=== PATIENT | male | born 1960 | race Caucasian/White ===

== ENCOUNTER 2024-04-27 15:42 | Outpatient (CLI) | payer OTHER, SELFPAY ==
--- NOTE | ~2024-04-27 | CT_ITS ---
EXAMINATION:CT lung screening DATE: 04/27/2024 16:18 INDICATION: Tobacco abuse. Current smoker with 40 pack year history. TECHNIQUE: Computed tomography (CT) of the chest was performed without intravenous contrast. Automate d exposure control and iterative reconstruction technique were employed. The dose-length product (DLP ) was 100.25 mGy-cm. COMPARISON: Chest CT 12/18/2018 FINDINGS: There is mild emphysema. There is mild bronchiectasis in right middle lobe. There is mild a telectasis bilaterally. There is a 3 mm nodule in left lower lobe. No pleural effusion. There is a le ft posterior diaphragmatic hernia containing fat. The heart size is normal. There are coronary artery calcifications. No pericardial effusion. There is mild thoracic spondylosis. IMPRESSION: 1. Lung-RADS category 2: Benign appearance or behavior. Continue annual screening with noncontrast lo w-dose chest CT in 12 months. Reviewed, dictated and finalized at location A. IMPRESSION: 1. Lung-RADS category 2: Benign appearance or behavior. Continue annual screeni ng with noncontrast low-dose chest CT in 12 months.
== END 2024-04-27 15:43 ==
DX: Z12.2 Encounter for screening for malignant neoplasm of respiratory organs (principal); J44.9 Chronic obstructive pulmonary disease, unspecified; Z72.0 Tobacco use
CPT/HCPCS: 71271

== ENCOUNTER 2024-04-27 15:46 | Outpatient (CLI) | payer OTHER, SELFPAY ==
--- NOTE | ~2024-04-27 | XR_ITS ---
EXAMINATION: XR cervical spine min 6V DATE: 04/27/2024 16:15 INDICATION: Cervical spine pain. Radiculopathy. TECHNIQUE: 9 views of cervical spine including flexion and extension views were obtained. COMPARISON: Cervical spine radiographs 07/01/2018 FINDINGS: There is 8 degrees levocurvature of cervical spine. There is kyphosis of cervical spine. Th ere is 2 mm anterolisthesis of C3 on C4 and C4 on C5 and 2 mm retrolisthesis of C5 on C6 and C6 on C7 . There is developmental anterior and posterior fusion at C2-C3. There is mildly decreased disc heigh t at C4-C5 and severely decreased disc height at C5-C6 and C6-C7. The spine is hypomobile with flexio n and extension. There is multilevel uncovertebral joint osteoarthritis, severe on the right at C3-C4 , bilaterally at C5-C6, and on the left at C6-C7. There is multilevel facet joint osteoarthritis, sev ere on the left at C6-C7. On the right, there is moderate neural foraminal stenosis at C2-C3 and C3-C 4 and mild neural foraminal stenosis at C4-C5 and C5-C6. On the left, there is mild neural foraminal stenosis at C3-C4, C4-C5, C5-C6, and C6-C7. There is mild central canal stenosis at C4-C5, C5-C6, and C6-C7. No prevertebral soft tissue swelling. IMPRESSION: 1. Severe cervical spondylosis. Reviewed, dictated and finalized at location A.
== END 2024-04-27 15:47 ==
PROVIDERS: PCP Chiropractor; Visit Provider Chiropractor
DX: M47.22 Other spondylosis with radiculopathy, cervical region (principal)
CPT/HCPCS: 72052

== ENCOUNTER 2025-02-06 13:51 | Emergency (ER) | payer OTHER, SELFPAY ==
--- NOTE | ~2025-02-06 | XR_ITS ---
EXAMINATION: XR chest 2V DATE: 02/06/2025 14:21 INDICATION: Feels dehydrated TECHNIQUE: PA and lateral views of the chest were obtained. COMPARISON: Chest radiograph dated 12/18/[address] dated 04/27/2024 FINDINGS: The lungs remain clear with no focal airspace opacities, pulmonary edema, pleural effusion or pneumot horax. The cardiomediastinal silhouette is normal. Visualized bones and soft tissues are unremarkable . IMPRESSION: 1. No acute cardiopulmonary disease. Reviewed, dictated and finalized at location A.
--- NOTE | 2025-02-06 13:54 | ECG_ITS ---
Test Date: 2025-02-06 14:08:38 Measurements Intervals Elizabeth Rate: 81 P: 56 [place]: 181 QRS: 58 QRSD: 85 T: 71 QT: 359 QTc: 417 Interpretive Statements SINUS RHYTHM BASELINE ARTIFACT- I, II, III, AVR, AVL, AVF, V1-V6 NORMAL ECG No previous ECG available for comparison Electronically Signed On 02-06-2025 15:09:30 CDT by Javier Osorio D.O.
--- OUTSIDE RECORDS SUMMARY | 2025-02-06 14:13 | XMS_ITS | Patient Health Record ---
Author Organization [facility] Address [address] [place] [address] Care Team Providers Care Direct Customer Service Representative Name Role Phone Mindy Ladd MD Primary Care Provider Nolvia LUNDY, PA-C, [place] Unavailable Nicholas RAMIREZ, Rivera Jones Unavailable Reason For Referral No Information Medications Medication SIG (Take, Route, Frequency, Duration) Notes Start Date End Date Status Tamsulosin HCl 0.4 MG 1 capsule Orally O nce a day Active Actemra ACTPen 162 MG/0.9ML as directed Subcutaneous Act tigre Breo Ellipta 200-25 MCG/INH 1 puff Inhalation Once a day Active traZODone HCl 50 MG 1 tab Orally Once a day Active ALPRAZolam 1 MG 0.5 Orally 1- 2 time s a day Active Atorvastatin Calcium 40 MG 1 tablet Orally Once a day Active Social History Tobacco Use: Social History Observation Description Date Details (start date - stop date) Current Smoker NA - NA Tobacco Use/Smoking Question Answer Notes Are you a current smoker How often do you smoke cigarettes? every day How many cigarettes a day do you smoke? 11-20 Problems Problem Type SNOMED Code ICD Code Onset Dates Problem Status W/U Status Risk Notes Problem Peptic ulcer without haemorrhage AND without perforation (37679883) Peptic ulcer, site unspecified, unspecified as acute or chronic, without hemorrhage or perforation (K27.9) Active confirmed Problem Chronic pancreatitis (375960285) Other chronic pancreatitis (K86.1) Active confirmed Problem History of polyp of colon (situation) (269769824) Personal history of colonic polyps (Z86.010) Active confirmed Problem Gastric ulcer without hemorrhage, without perforation AND without obstruction (11471465) Gastric ulcer, unsp as acute or chronic, w/o hemor or perf (K25.9) Active confirmed Plan Of Treatment Pending Test Test Name Order Date Colonoscopy 09/21/2019 Esophagogastroduodenoscopy (EGD) 020 Insurance Providers Payer Name Payer Address Payer Phone Subscriber Number Group Number Insured Name Patient Relationship to Insured Coverage Start Date Coverage End Date [facility] [address] [place], [place] [id number] Joaquín Vizcaino Self - patient is the insured Medical (General) History Medical History History ICD Code Rheumatoid arthritis Hyperlipidemia Spinal stenosis Tobacco use Acute pancreatitis Anxiety Chronic prostatitis GERD with esophagitis Chronic pancreatitis Peptic ulcer disease Surgical History Surgery Date(Month/Year) Discectomy Back fusion Left hip replacement Hernia repair x 3 MCL left knee reconstruction Bone stim removal Colonoscopy 2013 EGD/EUS [place] 09/14/2019 L A grade B reflux esophagitis, bx. Non bleeding gastric ucler with no bleeding, bx. Non bleeding duodenal ulcer with no stigmata of bleeding. Bx. Mild to moderate chronic pancreatitis. No cysts or solid mass lesio ns. Normal CBD, ampulla and gallbladder. Path- esophageal bx with mild to moderate reflux esophagitis, neg for dysplasia. Mild chronic gastritis. Duodenal bx with acute duodenitis with edema, gastric foveolar metaplasia. Detached ulcer debris. F/U EGD 8 weeks.
--- OUTSIDE RECORDS SUMMARY | 2025-02-06 14:13 | XMS_ITS | Encounter Summary ---
Author Organization [facility] Address [address] [place] [address] Phone Care Team Providers Care Customer Sales Specialist Name Role Phone Rafiq Dawson MD Primary Care Provider [phone] Mindy Ladd MD Primary Care Provider Santa Woodward MD Unavailable [phone] Babak Levin MD Primary Care Provider Encounter Details Date Type Department Care Team (Late st Contact Info) Description 12/03/2017 Orders Only [facility] ProviderValdo MD [address] [place] [address] Social History Tobacco Use Types Packs/Day Years Used Date Smoking Tobacco: Heavy Smoker Smokeless Tobacco: Never Comments:Smoking History Pac ks/day: 1 Packs Alcohol Use Standard Drinks/Week Comments No 0 (1 standard drink = 0.6 oz pur e alcohol) Sex and Gender Information Value Date Recorded Sex Assigned at Not on file 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 us Historical Provider LAB BLOOD ORDERABLES Jerrica l Result documented in this encounter Visit Diagnoses Not on filedocumented in this encounter Care Teams Customer Sales Specialist Relationship Specialty Start Date End Date Rafiq Dawson MD [address] [place] [address] PCP - General Family Practice 08/05/17 09/11/19 Mindy Ladd MD [address] [place] [address] PCP - General 09/12/19 09/13/20 Babak Levin MD [address] [place] [address] PCP - General Family Practice 09/14/20 Santa Woodward MD [address] [place] [address] Referring Physician Surgery 10/14/19 documented as of this encounter
--- OUTSIDE RECORDS SUMMARY | 2025-02-06 14:14 | XMS_ITS | Clinical Summary ---
Author Organization [facility] [employer] Address [address] [place] [address] Care Team Providers Care Dental Equipment Installer And Servicer Name Role Phone Babak Levin MD Primary Care Provider Source Comments [facility],non-owned Affiliates and Associated Physician Practices is amultiple site organization consisting of ambulatory clinics and hospital sitesin [place], [place], [place] and [place]. This disclosure is being madepursuant to the Care Everywhere program and may not contain all information available regarding this patient. Last updated 18.[facility] [employer] Allergies Active Allergy Reactions Criticality Noted Date Comments Leflunomide Other Low 04/23/2023 Pt can't remember Methotrexate Other Low 04/23/2023 Reaction: lung toxicity, Sulfasalazine Nausea and/or Vomiting Low 04/23/2023 Reaction: nausea, Medications * Be aware that medications may not be up to date on this document. Alwaysverify current medications with the patient. acyclovir (Zovirax) 400 MG tablet TAKE 1 TABLET BY MOUTH THREE TIMES DAILY NEEDED FOR OUTBREAK 10/20/2022 Active ALPRAZolam (Xanax) 0.25 MG tablet Take 1 (one) tablet by mouth 2 times daily as needed anxiety 12/08/2022 Active Ascorbic Acid 100 MG Take 1 (one) tablet by mouth once daily Active atorvastatin (Lipitor) 40 MG tablet Take 1 (one) tablet by mouth 10/03/2022 Active Cholecalciferol 50 MCG (1999 UT) Take 2,000 Units by mouth once daily Active Enbrel SureClick 50 MG/ML auto-injector pen 03/03/2023 Active hydroxychloroqu ine (Plaquenil) 200 MG tablet TAKE 2 TABLETS(400 MG) BY MOUTH DAILY 01/10/2023 Active omeprazole (PriLOSEC) 20 MG capsule Take 1 (one) capsule by mouth once daily 04/21/2022 Active sildenafil (Viagra) 100 MG tablet TAKE 1 TABLET BY MOUTH ONCE DAILY NEEDED FOR SEXUAL ACTIVITY 09/25/2022 Active tamsulosin (Flomax) 0.4 MG capsule Take 1 (one) capsule by mouth once daily 02/16/2023 Active traZODone (Desyrel) 100 MG tablet TAKE 1/2 TO 1 TABLET BY MOUTH EVERY NIGHT FOR SLEEP 12/14/2022 Active Vitamin E 45 MG (100 UNIT) CAPS Take 1 (one) capsule by mouth once daily Active albuterol HFA (Proventil; Ventolin; Proair) 108 (90 Base) MCG/ACT inhaler Inhale 2 (two) puffs by mouth every 6 hours as needed 8 g 5 03/05/2023 Active Breztri Aerosphere 160-9-4.8 MCG/ACT inhaler INHALE 2 PUFFS BY MOUTH TWICE DAILY 10.7 g 11 08/15/2024 Active Active Problems Problem Noted Date Diagnosed Date COPD (chronic obstructive pulmonary disease) Rheumatoid arthritis involvi ng multiple sites with positive rheumatoid factor 03/05/2023 Family History Medical History Relation Name Comments Other - Cardiac Brother Cancer - Bladder Father Blood Clots Maternal Grandfather Sarcoidosis Mother Cancer - Other Paternal Grandfather Relation Name Status Comments Brother Alive Father Maternal Grandfather Maternal Grandmother Mother Alive Paternal Grandfather Paternal Grandmother Sister Alive Social History Tobacco Use Types Packs/Day Years Used Date Smoking Tobacco: Every Day Cigarettes 1 44.4 Started: 09/07/1980 Smokeless Tobacco: Never Tobacco Cessation:Ready to Q uit: Yes; Counseling Given: Yes Alcohol Use Standard Drinks/Week Comments Not Currently 0 (1 standard drink = 0.6 oz pur e alcohol) rarely Sex and Gender Information Value Date Recorded Sex Assigned at Not on file 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 Gender Identity Not on file Sexual Orientation Not on file Last Filed Vital Signs Vital Sign Reading Time Taken Comments Blood Pressure 122/76 04/21/2024 8:54 AM CDT Pulse 76 04/21/2024 8:54 AM CDT Temperature 36.2 C (97.2 F) 04/23/2023 8:33 AM CDT Respiratory Rate 16 04/23/2023 8:33 AM CDT Oxygen Saturation 98% 04/21/2024 8:54 AM CDT Inhaled Oxygen Concentration - - Weight 80.3 kg (177 lb) 04/21/2024 8:54 AM CDT Height 177.8 cm (5' 10) 04/21/2024 8:54 AM CDT Body Mass Index 25.4 04/21/2024 8:54 AM CDT Plan of Treatment Upcoming Encounters Date Type Department Care Team (Late st Contact Info) Description 04/20/2025 9:20 AM CDT Office Visit [facility] - Pulmonology [address] [place], [place] [id number] Ondina Redman, CLOTH WINDER-AUTO CLAIMS ADJUSTER [address] [place] [address] Health Maintenance Due Date Last Done Comments COLOGUARD (AGES 45-75) - COLON CA SCREENING 1962 COLON MONITORING 1962 COLONOSCOPY - COLON CA SCREENING 1962 CT COLONOGRAPHY - COLON CA SCREENING 1962 Colorectal Cancer Screening 1962 FIT - COLON CA SCREENING 1962 FLEX SIG - COLON CA SCREENING 1962 HIV SCREENING 1977 HEPATITIS C SCREENING 12/20/1980 DTAP/TDAP/TD VACCINES (1 - Tdap) 1981 PNEUMOCOCCAL VACCINE 50+ (1 of 2 - PCV) 1981 LUNG CANCER SCREENING 2012 ZOSTER VACCINE (1 of 2) 2012 Respiratory Syncytial Virus (RSV) Vaccine Pt: or over 60 yrs (1 - Risk 60-74 years 1-dose series) 2022 COVID-19 VACCINE (1 - season) 2024 DEPRESSION SCREENING 09/07/2024 INFLUENZA VACCINE (Season Ended) 2025 05/27/2022, 06/02/2019, 06/26/2018, Additional history exists SCREENING FOR DIABETES 11/26/2025 11/26/2022 HEPATITIS B VACCINE Aged Out No longe r eligible based on patient's age to complete this topic HIB VACCINE Aged Out No longer eligi ble based on patient's age to complete this topic HPV VACCINE Aged Out No longer eligi ble based on patient's age to complete this topic MENINGOCOCCAL (Group B) VACCINE SHARED DECISION-MAKING Aged Out No longer eligible based on patient's age to complete this topic MENINGOCOCCAL GROUPS A/C/Y/W VACCINE Aged Out No longer eligible based on patient's age to complete this topic Insurance [employer] Care Teams Dental Equipment Installer And Servicer Relationship Specialty Start Date End Date Babak Levin MD [facility] [place] [address] [place] [address] PCP - General Family Medicine 04/14/23
--- OUTSIDE RECORDS SUMMARY | 2025-02-06 14:14 | XMS_ITS | Encounter Summary ---
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 [place] [address] Ondina Redman, BACTERIOLOGY TECHNICIAN-PRODUCTION LINE WELDER [address] [place] [phone] documented as of this encounter Procedures Procedure Name Priority Date/Time Associated Diagnosis Comments DERMATOPATHOLOGY Routine 02/05/2022 12:0 0 AM CDT documented in this encounter Results * DERMATOPATHOLOGY (02/05/2022 12:00 AM CDT) Case Report Dermatopathology Report Case: [id number] Authorizing Provider: Jono Hager MD Collected: 02/05/2022 12:00 AM Ordering Location: [facility] Received: 02/06/2022 01:51 PM Pathologist: Jean Hurd MD Specimen: Skin, left medial clavicle 3:43 PM CDT DERMATOPATHOLOGY LABORATORY Final Diagnosis Specimen A. 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 3:43 PM CDT DERMATOPATHOLOGY LABORATORY Gross Description Specimen A: Received is one formalin filled container labeled with the patient's name and designated left medial clavicle. The specimen consists of a shave biopsy measuring [id number]. Jar 0. 3:43 PM CDT DERMATOPATHOLOGY LABORATORY Microscopic Description Specimen A. SKIN, left medial clavicle: Sections show compact orthokeratosis with acanthosis composed of slightly larger keratinocytes with basal layer hyperpigmentation. In the dermis, there are dilated vascular spaces surrounded by widely spaced endothelial cells. 3:43 PM CDT DERMATOPATHOLOGY LABORATORY Disclaimer An external and internal positive and negative controls are appropriate for the histochemical, immunohistochemical and immunofluorescence stain(s) in this case (if any), except where stated explicitly. The performance characteristics of the stain(s) cited in this report were developed and its performance characteristic determined by the Dermatopathology Laboratory at [facility], directed by Dr. Yusef Hurd. These tests need not be, and therefore are not, approved by the [place] Food and Drug Administration. The tests are used for clinical purposes. Billing Codes Specimen Charges Stain Charges 72165 1 2 3:43 PM CDT DERMATOPATHOLOGY LABORATORY Embedded Images 3:43 PM CDT DERMATOPATHOLOGY LABORATORY Pathology/Cytolog y TISSUE SPECIMEN FROM SKIN / Unknown 02/05/2022 02/06/2022 1:51 PM CDT Jono Hager MD LAB - PATHOLOGY/CYTOLOGY ORD ERABLES Final Result DERMATOPATHOLOGY LABORATORY [facility] - Department of Dermatology [facility] [address] [place] [address], [address] [phone] documented in this encounter Visit Diagnoses Not on filedocumented in this encounter Care Teams Enterprise Sales Person Relationship Specialty Start Date End Date Babak Levin MD [address] [facility] [address] [address] PCP - General Family Medicine 04/14/23 documented as of this encounter
--- OUTSIDE RECORDS SUMMARY | 2025-02-06 14:14 | XMS_ITS | Referral Summary ---
Author Organization [facility] Address [address] [place] [address] Care Team Providers Care Cylinder Block Hole Reliner Name Role Phone Santa Woodward MD Unavailable [phone] Babak Levin MD Primary Care Provider Encounters Date Type Department Care Team Description 02/01/2025 8:35 AM CDT Lab [facility] Outpatient Lab [address] [place] [address] Encounter for long-term (current) use of high-risk medication; Rheumatoid arthritis involving multiple sites with positive rheumatoid factor (HCC) 02/01/2025 8:00 AM CDT Office Visit [facility] at [facility] [address] [place] [address] Jessica Tyson MD Rheumatoid arthritis involving multiple sites with positive rheumatoid factor (HCC) (Primary Dx); Encounter for long-term (current) use of high-risk medication; Bilateral carpal tunnel syndrome from Last 3 Months Allergies Active Allergy Reactions Criticality Noted Date Comments Leflunomide Other (See comments) Low 04/23/2023 Pt can't remember Methotrexate Other (See comments) Low 04/23/2023 Reaction: lung toxicity, Sulfasalazine Nausea only,Nausea A nd Vomiting Low 04/23/2023 Reaction: nausea, Medications sildenafil (VIAGRA) 100 mg tablet take 0.5 - 1 Tablet by oral route every day as needed approximately 1 hour before sexual activity 3 0 03/14/20 13 Active tamsulosin (FLOMAX) 0.4 mg capsule,exten ded release 24hr take 1 capsule by oral route every day after the evening meal 0 0 09/16/19 14 Active atorvastatin (LIPITOR) 40 mg tablet Take 1 tablet (40 mg total) by mouth daily Active ascorbic acid (VITAMIN C) 100 mg tablet Take 1 tablet (100 mg total) by mouth daily Active vitamin E (AQUASOL E) 100 unit capsule Take 1 capsule (100 Units total) by mouth daily Active zinc 50 mg tablet Take by mouth daily Active acyclovir (ZOVIRAX) 400 mg tablet TAKE 1 TABLET BY MOUTH THREE TIMES DAILY NEEDED FOR OUTBREAK 02/14/20 21 Active ALPRAZolam (XANAX) 0.25 mg tablet Take 1 tablet (0.25 mg total) by mouth nightly as needed 04/25/20 21 Active cholecalcifer ol (VITAMIN D-3) 2000 unit capsule Take 1 capsule (2,000 Units total) by mouth daily Active Breztri Aerosphere 160-9-4.8 mcg/actuation HFA aerosol inhaler Inhale 2 puffs 2 (two) times a day 04/23/20 23 Active omeprazole (PriLOSEC) 20 mg capsule TAKE 1 CAPSULE(20 MG) BY MOUTH DAILY 30 capsule 11 08/04/20 23 Active EnbreL SureClick 50 mg/mL (1 mL) pen injector INJECT 1 PEN UNDER THE SKIN EVERY 7 DAYS 4 mL 3 06/23/20 24 Active hydroxychloro quine (PLAQUENIL) 200 mg tablet TAKE 2 TABLETS(400 MG) BY MOUTH DAILY 180 tablet 1 10/04/19 25 Active methylPREDNIS olone (Medrol, Diego,) 4 mg Dosepack follow package directions 1 packet 10/14/19 25 Active Additional Information Patient not taking.Reported on 02/01/2025 traZODone (DESYREL) 100 mg tablet TAKE 1/2 TO 1 TABLET BY MOUTH EVERY NIGHT FOR SLEEP 30 tablet 5 12/30/19 25 Active EnbreL SureClick 50 mg/mL (1 mL) pen injector INJECT 1 PEN UNDER THE SKIN EVERY 7 DAYS 4 mL 3 01/18/20 25 Active Additional Information Patient not taking.Reported on 02/01/2025 methylPREDNIS olone (Medrol, Diego,) 4 mg Dosepack follow package directions 1 packet 02/02/20 Active BREO ELLIPTA 200-25 mcg/dose diskus inhaler USE 1 PUFF DAILY 0 09/14/19 19 025 Discontinued cyclobenzapri ne (FLEXERIL) 10 mg tablet Take 1 tablet (10 mg total) by mouth 3 (three) times a day as needed for muscle spasms 30 tablet 1 03/28/20 22 025 Discontinued etanercept (ENBREL) 50 mg/mL (1 mL) pen injector Inject 1 mL (50 mg total) under the skin every 7 days 4 mL 3 09/19/19 025 Discontinued Active Problems Problem Noted Date Diagnosed Date Gastric ulcer, unsp as acute or chronic, w/o hem or or perf 02/01/2025 Long-term use of hydroxychloroquine 05/13/2023 Assessment & Plan (05/13/2023 8:08 AM CDT): Screening Ophthalmological Evaluation Request Medication: Hydroxychloroquine (Plaquenil) Patient: Please obtain the following eye exam with your eye doctor before starting hydroxychloroquine (Plaquenil). Then, continue to obtain yearly eye exams (or as directed by your eye doctor) while taking Plaquenil. Provider: Please perform the following exams on an annual basis: Visual Acuity Visual Field testing Slit Lamp evaluation Color Vision Assessment OCT COPD (chronic obstructive pulmonary disease) Assessment & Plan (01/24/2020 9:58 AM CDT): See comments above Spasm of muscle of lower back 03/28/2022 Assessment & Plan (03/28/2022 11:42 AM CDT): Acute onset of spasms without any new radicular features. Encouraged isometric stretching, heat 20 minutes 3x and day, short course of flexeril. Low threshold to proceed on to PT if not quickly improving. Trigger middle finger of left hand 03/28/2022 Assessment & Plan (03/28/2022 11:43 AM CDT): Worsening with more frequent triggering and more difficulty manually releasing. I have encouraged evaluation by ortho/hand but he continues to decline at present. Reassess at next visit. COVID-19 09/13/2021 Abscess of anal and rectal regions 02/16/2020 Overview (02/16/2020): Added automatically from request for surgery [id number] Advice given about 2019 novel coronavirus by tel sreedhar 01/24/2020 Assessment & Plan (01/24/2020 9:58 AM CDT): The full impact of autoimmune diseases and immunomodulatory medications on susceptibility and complications of coronavirus disease is not yet studied. Because we have keno writer / runner with this new virus we do not currently have absolute answers. Currently we are not recommending that patients stop their medications during this period of uncertainty. We do not want to risk letting your disease flare. The usual CDC precautions for minimizing coronavirus risk are appropriate. Frequently wash your hands with soap and water for at least 20 seconds. When soap and running water are unavailable, use an alcohol-based hand rub with at least 60% alcohol. Always wash hands that are visibly soiled. Avoid touching your eyes, nose, or mouth with unwashed hands. Avoid close contact with people who are sick and maintain social distancing. The CDC has recommended that ALL persons wear a fabric mask when out in public. Obviously this is a fast-moving issue and the CDC is providing regular updates as the course and extent of the epidemic is monitored. You may keep up to date at the CDC website: www.coronavirus.gov You may also find more information relevant to your questions at the [employer] webpage: arthritis.org. Click on the Coronavirus banner. It is important that you continue to adhere to the [id number] orders for the time being, especially in view of your potentially immunocompromised status. Feel free to reach out to us if you have additional questions after you review this information. You may review the current [employer] Covid-19 clinical guidance for Patients with Rheumatic Diseases if you copy and paste the link below into your web browser: [email or web address] Of course, Actemra should be placed on hold in the event you were to become ill. Peptic ulcer without hemorrhage or perforation 0 10/17/2019 Assessment & Plan (10/17/2019 10:02 AM METAL WORKER): Reviewed EGD with duodenal and gastric ulcer. Completed 30 day Prilosec as ordered by Dr. Hernandez. Follow up endoscopy 11/23/2019. May use Pepcid AC in the interim if needed for heartburn/dyspepsia. History of pneumonia 10/17/2019 Overview (10/17/2019): pneumonia Perianal abscess 10/06/2019 Overview (10/06/2019): Added automatically from request for surgery [id number] Assessment & Plan (01/24/2020 10:16 AM CDT): Management per Dr. Woodward. If continues to recur may need to discontinue Actemra; hopefully it will not come to that. Assessment & Plan (10/17/2019 10:05 AM METAL WORKER): Incision and drainage 10/14/2019 (Dr. Woodward). Acute anal fissure 08/28/2019 Presence of left artificial hip joint 05/16/2019 Trochanteric bursitis of left hip 05/16/2019 Lumbosacral spondylosis without myelopathy 03/29 Assessment & Plan (07/07/2019 9:13 AM CDT): DDD clinically stable with conservative management. Spondylosis of cervical yessica on without myelopathy or radiculopathy 03/29/2019 Chronic pancreatitis 03/29/2019 Overview (04/25/2019): US Abdomen Complete Status: Final result Study Result EXAM: ABDOMINAL SONOGRAM HISTORY: Acute pancreatitis FINDINGS: Liver: No focal hepatic abnormality. Gallbladder: Gallbladder appears normal. Bile ducts: Normal diameter. Pancreas: The limited portions of pancreas which can be visualized appear unremarkable. Aorta: No sonographic evidence for abdominal aortic aneurysm Inferior vena cava: Patent in the upper abdomen Spleen: Normal size and echogenicity Right kidney: 11.7 cm in length. No hydronephrosis Left kidney: 11.8 cm in length. No hydronephrosis IMPRESSION: No sonographically visualized abnormalities identified. Electronically signed by: Jose J Low M.D. Result History US Abdomen Complete (Order #[id number]) on 04/25/2019 - Order Result History Report Assessment & Plan (01/24/2020 9:55 AM CDT): Currently symptom free. Update lab as per orders. Assessment & Plan (10/17/2019 9:49 AM METAL WORKER): EGD and EUS reviewed. Impression: EGD impression: - LA Grade B reflux esophagitis. Biopsied. - Normal gastric body. Biopsied. - Non-bleeding gastric ulcer with no stigmata of bleeding. Biopsied. - One non-bleeding duodenal ulcer with no stigmata of bleeding. Biopsied. EUS impression: - Endosonographic imaging of the pancreas showed sonographic changes consistent with mild-moderate chronic pancreatitis. There was no evidence of pancreatic cysts or solid mass lesions. - There was no sign of significant pathology in the common bile duct, gallbladder and the ampulla. Recommendation: - The patient will be observed post-procedure, until all discharge criteria are met. - Await path results. - Low fat diet indefinitely. - Smoking cessation. - Use Prilosec (omeprazole) 40 mg PO BID for 1 month [facility] - Return to Dr Hunter's office in 2-4 weeks. - Consider repeat EGD based on the duodenal ulcer biopsies to check for healing. The duodenal ulcer showed raised edges therefore suggest repeat EGD in 2 months. - The findings and recommendations were discussed with the patient and their family. Attending Participation: I personally performed the entire procedure. Electronically signed by Baldemar Bright MD Baldemar Bright M.D. 09/14/2019 9:18:35 AM This document was signed electronically. Number of Addenda: 0 Note Initiated On: 09/14/2019 7:31 AM Last Resulted: 09/14/19 07:31 Follow up exam scheduled 11/23/2019. Assessment & Plan (07/07/2019 9:15 AM CDT): Lab Results Component Value Date LIPASE 135 (H) 03/29/2019 Update lab as per orders. Assessment & Plan (03/29/2019 9:52 AM CDT): Evaluated in [facility] ER 2018 when patient presented with chest pain. He does not believe any imaging was performed. Reportedly persistently elevated lipase on repeat testing per Dr. Dawson. Referral to GI suggested, but never scheduled. Update lab as per orders. Consider ultrasound and/or CT imaging if not already done. Instability of knee joint, left 03/29/2019 Assessment & Plan (07/07/2019 9:16 AM CDT): Continue conservative management as per orthopedics (Dr. Mikhail Mays). Assessment & Plan (03/29/2019 9:50 AM CDT): Previous surgery noted. X-ray 12/2018: XR Knee Left AP Lat Alcaraz Chalfant Status: Final result Study Result EXAM: XR KNEE AP LAT ALCARAZ SUNRISE L INDICATION: Rheumatoid arthritis COMPARISON: No prior studies available. FINDINGS: Four views of the right knee. Surgical hardware at the medial femoral condyle and medial aspect of the proximal tibia. No carolyne-hardware lucency. No significant degenerative changes. No osseous erosions. No evidence of fracture. No evidence of dislocation. There is a no significant joint effusion. IMPRESSION: No acute findings or significant degenerative changes. Postsurgical changes of the distal femur and proximal tibia. Electronically signed by: JAYSON LOOMIS MD Result History XR Knee Left AP Lat Alcaraz Chalfant (Order #[id number]) on 12/07/2018 - Order Result History Report He has significant pain with weight bearing and flexion with ? Pos anterior drawer and Kristine maneuver as well as medial instability and positive Otilia sign on exam. Referral to orthopedic surgery provided. Viral upper respiratory tract infection 03/29/20 19 Assessment & Plan (03/29/2019 9:52 AM CDT): Most respiratory infections are viral. Per CDC recommendations, and to reduce increasing incidence of bacterial antibiotic resistance, antibiotics are not advised unless fever, deep chest cough with purulent sputum or symptoms lasting more than 10 day. For the time being would use Mucinex DM for cough, non-sedating antihistamine (such as Zyrtec) and nasal steroid spray (flonase) all available over the counter. If not improvement over the next 7-10 day let us know. Moderate cigarette smoker (10-19 per day) 2016 Assessment & Plan (01/24/2020 9:55 AM CDT): Cigarette smoking and COPD pose an additional vulnerability to Covid-19 infection. A concentrated focus on tobacco cessation would be to your advantage. Assessment & Plan (10/17/2019 10:00 AM METAL WORKER): Smoke cessation efforts reviewed. Reinforce importance tobacco cessation! Please check out the CDC tobacco cessation website: https://www.cdc.gov/tobacco/ We can offer Chantix to help reduce craving and withdrawal if you wish to try. You may read read about Chantix online. www.chantix.[employer] Assessment & Plan (08/05/2017 9:22 AM METAL WORKER): Pulmonary issues managed by Dr. Jorge santos. Patient resolved to quit smoking after 09/07/2017! Hyperlipidemia 06/29/2017 Assessment & Plan (07/07/2019 9:16 AM CDT): Lab Results Component Value Date CHOL 167 12/07/2018 POCCHOL 180 07/01/2018 POCCHOL 153 06/30/2017 Lab Results Component Value Date HDL 41 12/07/2018 POCHDL 41 07/01/2018 POCHDL 39 06/30/2017 Lab Results Component Value Date LDLCALC 91 12/07/2018 POCLDL 111 07/01/2018 POCLDL 73 06/30/2017 Lab Results Component Value Date TRIG 173 (H) 12/07/2018 POCTRIG 137 07/01/2018 POCTRIG 203 06/30/2017 Update lab as per orders. Assessment & Plan (07/01/2018 8:57 AM CDT): Lipids are well controlled. Continue high-intensity statin therapy. Assessment & Plan (06/30/2017 10:19 AM CDT): Lipids are well controlled. Continue high-intensity statin therapy. I made no change in his excellent medical regimen today. I asked him to follow up with me annually, or sooner if needed. I again strongly advised him to stop smoking completely, and to diet and exercise regularly. Encounter for long-term (cur rent) use of high-risk medication 04/15/2017 Assessment & Plan (05/13/2023 8:08 AM CDT): Long-term use of high-risk medication requiring regular monitoring. Labs ordered, no s/s of med tox or infection. Encouraged to work with PCP to make sure all recommended cancer screens and vaccinations are complete. Avoid live-vaccines unless reviewed with senior ui developer first. Assessment & Plan (03/28/2022 8:21 AM CDT): Long-term use of high-risk medication requiring regular monitoring. Labs ordered, no s/s of med tox or infection. Encouraged to work with PCP to make sure all recommended cancer screens and vaccinations are complete. Avoid live-vaccines unless reviewed with senior ui developer first. Screening Ophthalmological Evaluation Request Medication: Hydroxychloroquine (Plaquenil) Patient: Please obtain the following eye exam with your eye doctor before starting hydroxychloroquine (Plaquenil). Then, continue to obtain yearly eye exams (or as directed by your eye doctor) while taking Plaquenil. Provider: Please perform the following exams on an annual basis: Visual Acuity Visual Field testing Slit Lamp evaluation Color Vision Assessment OCT Assessment & Plan (01/24/2020 9:59 AM CDT): Lab Results Component Value Date WBC 15.4 (H) 10/17/2019 HGB 15.9 10/17/2019 HCT 46.8 10/17/2019 MCV 97.3 (H) 10/17/2019 LABPLAT 203 10/17/2019 Chemistry Lab Results Component Value Date SODIUM 141 10/17/2019 POTASSIUM 4.3 10/17/2019 CHLORIDE 104 10/17/2019 CO2 25 10/17/2019 ANIONGAP 12 10/17/2019 BUNSER 13 10/17/2019 CREATININE 0.92 10/17/2019 GLUCOSE 97 10/17/2019 CALCIUM 9.8 10/17/2019 BILITOT 0.3 10/17/2019 PROTEIN 7.3 05/01/2016 ALBUMIN 4.3 10/17/2019 GFRNAA 93 10/17/2019 ALKPHOS 80 10/17/2019 AST 34 10/17/2019 ALT 39 10/17/2019 MAGNESIUM 2.09 07/07/2019 Lab Results Component Value Date SEDRATE 8 10/17/2019 Lab Results Component Value Date CRP 10.9 (H) 10/17/2019 Patient on medications requiring periodic lab monitoring for drug safety. Update lab as per orders written. Assessment & Plan (10/17/2019 9:48 AM METAL WORKER): Patient on medications requiring periodic lab monitoring for drug safety. Update lab as per orders written. Assessment & Plan (07/07/2019 9:15 AM CDT): Patient on immunosuppressive medications requiring periodic lab monitoring for drug safety. Update lab as per orders written. Assessment & Plan (03/29/2019 9:48 AM CDT): Patient on immunosuppressive medications requiring periodic lab monitoring for drug safety. Update lab as per orders written. Assessment & Plan (12/07/2018 9:44 PM CDT): Patient on immunosuppressive medications requiring periodic lab monitoring for drug safety. Update lab as per orders written. Assessment & Plan (09/30/2018 9:41 AM METAL WORKER): Patient on immunosuppressive medications requiring periodic lab monitoring for drug safety. Update lab as per orders written. Assessment & Plan (04/08/2018 9:15 AM CDT): Patient on immunosuppressive medications requiring periodic lab monitoring for drug safety. Update lab as per orders written. Assessment & Plan (12/03/2017 9:16 AM CDT): Patient on immunosuppressive medications requiring periodic lab monitoring for drug safety. Update lab as per orders written. Assessment & Plan (08/05/2017 9:23 AM METAL WORKER): Patient on immunosuppressive medications requiring periodic lab monitoring for drug safety. Update lab as per orders written. Assessment & Plan (04/15/2017 9:25 AM CDT): Patient on immunosuppressive medications requiring periodic lab monitoring for drug safety. Update lab as per orders written. Overweight with body mass index (BMI) 25.0-29.9 04/15/2017 Assessment & Plan (10/17/2019 10:01 AM METAL WORKER): An optimal BMI (body mass index) is between 20 and 25. Encourage weight loss. Each pound of weight lost unloads 3-4 pounds per square inch pressure from weight bearing joints. Diet and exercise are the keys to weight management. Assessment & Plan (07/07/2019 9:17 AM CDT): BMI satisfactory. A healthy diet and routine exercise regimen are delacruz to weight management. Assessment & Plan (03/29/2019 9:48 AM CDT): An optimal BMI (body mass index) is between 20 and 25. Encourage weight loss. Each pound of weight lost unloads 3-4 pounds per square inch pressure from weight bearing joints. Diet and exercise are the keys to weight management. Assessment & Plan (12/07/2018 9:44 PM CDT): BMI satisfactory. A healthy diet and routine exercise regimen are dleacruz to weight management. Assessment & Plan (09/30/2018 9:41 AM METAL WORKER): An optimal BMI (body mass index) is between 20 and 25. Encourage weight loss. Each pound of weight lost unloads 3-4 pounds per square inch pressure from weight bearing joints. Diet and exercise are the keys to weight management. Assessment & Plan (04/08/2018 9:15 AM CDT): An optimal BMI (body mass index) is between 20 and 25. Encourage weight loss. Each pound of weight lost unloads 3-4 pounds per square inch pressure from weight bearing joints. Diet and exercise are the keys to weight management. Assessment & Plan (12/03/2017 9:17 AM CDT): An optimal BMI (body mass index) is between 20 and 25. Encourage weight loss. Each pound of weight lost unloads 3-4 pounds per square inch pressure from weight bearing joints. Diet and exercise are the keys to weight management. Assessment & Plan (08/05/2017 9:22 AM METAL WORKER): Stable, near normal. An optimal BMI is < 25. Spinal stenosis of lumbar region 02/24/2014 Chest pain 07/19/2012 Overview (12/12/2016): CHEST PAIN NEC Assessment & Plan (07/01/2018 8:57 AM CDT): Stable, without definite angina, but he has had recurrent chest discomfort at rest, with some features concerning for possible angina in the setting of ongoing cigarette smoking and hyperlipidemia. I recommended an echocardiogram to re-evaluate left ventricular and valvular function, and a stress echo to rule out any significant ischemia. Further recommendations will await these results. I made no change in his excellent medical regimen today. Tentatively, I asked him to follow up with me on an as-needed basis only, pending the results of the above studies. He will follow up with his primary physician regularly. Rheumatoid arthritis 08/22/2009 Overview (04/08/2018): Images from the original note were not included. Assessment & Plan (05/13/2023 8:10 AM CDT): Stable Rheumatoid Arthritis, seropositive with +RF and anti CCP-history of many meds used in the past including SSZ, MTX, Arava, Humira, Cimzia, Xeljanz, Actemra, Plaquenil (Enbrel previously denied but now back on.) -Currently stable on Enbrel and plaquenil 200 mg bid -labs today to monitor for drug toxicity. -continue yearly retinal exam on plaquenil, he is up to date -encouraged him to continue regular stretching, exercise Follow up in 6 months and prn. Assessment & Plan (03/28/2022 8:22 AM CDT): Stable Rheumatoid Arthritis, seropositive with +RF and anti CCP-history of many meds used in the past including SSZ, MTX, Arava, Humira, Cimzia, Xeljanz, Actemra, Plaquenil (Enbrel denied) -Currently stable on Orencia and plaquenil 200 mg bid -labs today to monitor for drug toxicity. -continue yearly retinal exam on plaquenil, he is up to date -encouraged him to continue regular stretching, exercise Assessment & Plan (01/24/2020 9:57 AM CDT): RA clinically stable. He has had to suspend Actemra again for two weeks as he experience a slight resurgence of his rectal abscess (see below). During his periods of Actemra interruption his symptoms have flared slightly, but as he is working from home it has been manageable. He has resumed Actemra this week. Assessment & Plan (10/17/2019 9:46 AM METAL WORKER): Clinically stable. He has missed the last 3 weeks Actemra due to perirectal abscess and recent surgical incision an drainage (10/14/2019). Will hold Actemra x 2 weeks (may resume 10/30/2019). Update lab as per orders. Assessment & Plan (07/07/2019 9:15 AM CDT): Clinically improving with initiation Actemra. He is optimistic re: response. No med side effects reported; denies injection site reactions. Will continue same. Update lab as per orders. Prednisone 5-10 mg daily as needed for occasional flares ordered. Assessment & Plan (03/29/2019 9:48 AM CDT): Continued synovitis and pain on current med regimen (Xeljanz x 3 months). No med side effects reported. He has increased pain shoulders as well as flare L knee. Patient was seen in [facility] for chest pain with ?pancreatitis (elevated lipase) reportedly still high on repeat testing per Dr. Dawson (see below). Recommend discontinue Xeljanz (ineffective). He has previously failed Humira as well as Cimzia and had side effects from methotrexate, sulfasalazine and leflunomide. Will attempt to authorize Orencia (abatacept). Discussed with patient. ABATACEPT (ORENCIA) PATIENT INFORMATION: Abatacept (Orencia) is often prescribed after failure of a disease-modifying anti-rheumatic agent (DMARD), like methotrexate but it can be used as first-line therapy. Abatacept is used to reduce inflammatory symptoms such as swelling, pain, and stiffness. In the intermediate, it is expected to stop joint deformities, therefore helping to maintain range of motion. It is often used in patients with moderate to severe rheumatoid arthritis who have not responded to one or more DMARDs, such as methotrexate, or other biologic drugs. DMARDs are generally tried first. Abatacept may be used alone or in combination with DMARDs, which makes it more potent, but not with other biologic drugs (such as TNF inhibitors). Its use in other diseases is still being studied. Unlike some other biologic drugs, abatacept does not block inflammatory proteins like TNF-alpha antagonists. Abatacept attaches to the surface of inflammatory cells and blocks communication between these cells. By blocking this communication, abatacept lessens inflammation. HOW TO TAKE IT: Abatacept is available either in infusible or injectable form. The infusion is given intravenously (through a needle placed in a vein) at 0, 2, and 4 weeks, then monthly thereafter in your doctor's office or at an infusion center. The dosage is adjusted according to the patient s weight. It takes 30 minutes to receive the whole infusion. The injectable form of abatacept is injected under the skin at home once a week. It can be administered by the patient or another member of the home. Studies have shown this formulation to be as safe and effective as the infusion. Although some patients feel relief within the first month of treatment, usually three months of continuous treatment are needed to get the full effect of the medication. SIDE EFFECTS: The most common side effects reported were those associated with headaches, common colds, sore throat, and nausea. Rarely, patients may develop infusion reactions while receiving abatacept including a severe allergic reaction, hives, shortness of breath, and low blood pressure. Nurses will monitor you and your vital signs throughout the infusion. Pre-medications such as Tylenol or Benadryl can be used preventively and can be discussed with your doctor. The most important side effect is the risk of developing a serious infection, including pneumonia, tuberculosis, and others. Patients are tested for possible tuberculosis with a skin test or blood test before starting this drug. Abatacept should not be combined with another biologic drug, because the combination can increase the risk of jeff a serious infection. It is not yet clear if the risk of cancer is higher in patients on abatacept compared to patients with other drugs. Nevertheless, larger reports should demonstrate if there is any trend of possible cancer risk. Monitoring by your senior ui developer is necessary while taking this medication and lab monitoring may be needed periodically as well. Using two biologic drugs (such as TNF-alpha blockers and abatacept) at the same time carries high risk of developing serious infections. Patients who have previously received another biologic drug, such as a TNF-alpha td, can receive abatacept after the first drug has been stopped. Patients with diabetes mellitus should be aware that sugars in the infusion form of abatacept may cause false high blood sugar levels. You should discuss with your physician how to properly monitor this. TELL YOUR DOCTOR: Patients who have been exposed to people with suspected serious infections, such as tuberculosis, should notify their doctors before taking Orencia. All patients should be tested for tuberculosis before starting abatacept. Other laboratory tests may be required as well. Patients displaying symptoms of an infection - including fever, cough, or others - should notify their doctors. Patients should not receive live vaccines while receiving abatacept and should consult their senior ui developer before receiving a live vaccine afterwards. Risks in women are still being studied. Because biologics tend to be expensive, its availability may depend on your insurance formulary. Updated November 2016 by Fatoumata Severino MD and reviewed by the [employer] on Communications and Marketing.This information is provided for general education only. Individuals should consult a qualified health care provider for professional medical advice, diagnosis and treatment of a medical or health condition. 2017 [employer] - See more at: [email or web address] Assessment & Plan (12/07/2018 9:44 PM CDT): He has completed first month Xeljanz. He has not yet noticed improvement and in fact, is feeling worse as his Cimzia effect is dissipated. He describes generalized stiffness and malaise. Having increased difficulty with ADLs and especially painful L knee (previous arthroscopic surgery). I have explained to patient that it may take up to 12 weeks to begin to see Xeljanz effect and 24 weeks to assess full benefit. He is offered steroids (low dose) for immediate relief but wishes to avoid same. Will update lab as per orders and x-ray L knee. Consider return for steroid injection pend review same. 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 Xeljanz authorization never pursued following 04/2018 OV though patient is anxious to proceed. He has a single Cimzia dose remaining (due this weekend). He will not reorder. Update lab as per orders. Follow up 1 month after Xeljanz initiated. He understands that IF insurance denies Xeljanz we will pursue Orencia as second option. TOFACITINIB (XELJANZ) PATIENT INFORMATION: Tofacitinib citrate (Xeljanz ) is a coated tablet you swallow. The standard dosage is one 5 mg tablet taken twice a day. Tofacitinib s most common side effects are upper respiratory tract infections, diarrhea, headache, nasal congestion, sore throat and runny nose. Tofacitinib may lower your body s ability to fight infections, including TB. Watch for any signs of a possible infection, and don t take tofacitinib while you have an active infection until it is well controlled. Tofacitinib should not be used by people who have severe liver problems. It s unknown if tofacitinib is safe and effective in people with hepatitis B or C. Tofacitinib should be used with caution in people who have been told they are at a high risk of developing gastrointestinal perforation (a hole in the stomach, large bowel or small intestine). Before taking tofacitinib, tell your doctor if you have had TB, or if you have lived in or traveled to an area of the country or world where TB outbreaks are common. Tofacitinib may increase your risk of developing certain cancers, including lymphoma and some skin cancers, or activate hepatitis B or C if you are carrying those viruses. Tofacitinib citrate (Xeljanz ) is an oral, small molecule drug used to treat adults with [id number], active rheumatoid arthritis who have not responded well to being treated with methotrexate. Methotrexate is a disease-modifying antirheumatic drug (DMARD) used to treat rheumatoid arthritis (RA). Tofacitinib acts to block the body s production of enzymes called Janus kinases (JAKs). JAKs play a role in joint inflammation in RA, which can cause pain, swelling and stiffness. If left untreated, RA inflammation could lead to joint erosions, and organ and tissue damage. It may be used alone or in combination with methotrexate or other DMARDs. Tofacitinib is currently being studied for use in treating other autoimmune diseases, including psoriasis, psoriatic arthritis, ulcerative colitis, Crohn s disease and ankylosing spondylitis. HOW TO TAKE IT: Tofacitinib is a coated tablet that you swallow. The recommended dose is one 5 mg taken twice a day. People with moderate to severe renal impairment, or moderate hepatic impairment, should take only one 5 mg tablet per day. You may take tofacitinib tablets with or without food. Tofacitinib may be used alone to treat RA, or it may be used in combination with methotrexate or other DMARDs. However, it s not recommended to use tofacitinib with biologics, DMARDs, or with potent immunosuppressant drugs like azathioprine or cyclosporine. RISKS AND SIDE EFFECTS: Tofacitinib may reduce your body s ability to fight infection. Do not use tofacitinib if you have an active infection, even a localized infection, and don t start using tofacitinib again until your infection is well controlled. You should not take live vaccines while taking tofacitinib, but it s safe to take non-live vaccines. Some people who have taken tofacitinib have developed serious infections, such as tuberculosis (TB), invasive fungal infections, and bacterial and viral infections. You should watch carefully for the signs of infection during and after taking tofacitinib, including fever, chills, muscle aches, cough, body sores, diarrhea and pain when urinating. While taking tofacitinib, your doctor will test you regularly for changes to your blood or liver enzymes. Your doctor should test you for TB before you start taking tofacitinib, and watch you for signs of TB development while you are taking the drug. Before starting tofacitinib, you should tell your doctor if you have any medical condition that may make you more susceptible to infection, such as diabetes, HIV or a weak immune system. You should also tell your doctor if you have traveled or lived in any areas where there it is more likely to get certain fungal infections, or in countries where TB is widespread. Tofacitinib may increase your risk of certain cancers, such as lymphoma or some skin cancers, by suppressing your body s immune system responses. Some people taking tofacitinib, particularly those also taking nonsteroidal anti-inflammatory drugs (NSAIDs) or corticosteroids, may experience perforations or tears in their stomach or intestines, so tell your doctor if you have any unexplained stomach pain or changes in your bowel habits. Before starting tofacitinib, tell your doctor if you have had kidney or liver problems, or gastrointestinal problems like diverticulitis or ulcers. Some people taking drugs to prevent the rejection of a kidney transplant as well as taking tofacitinib have developed an Manuel-Cody virus-related infection, so tell your doctor if you have had a transplant and are taking these drugs. Tofacitinib also may lead to the activation of hepatitis B or C in people who carry those viruses. The most common side effects of tofacitinib include upper respiratory tract infections, diarrhea, headache, nasal congestion, sore throat and runny nose. It s unknown how tofacitinib may affect unborn children or be passed through breast milk, so or nursing women should weigh the possible risks and benefits of tofacitinib with their doctor. Tofacitinib s effectiveness may be reduced if taken with some antifungal and other medications, so tell your doctor about any medications you use before starting tofacitinib, or if you are preparing to get any vaccines. Updated March 2014. Written by Monica Padilla and reviewed by the [employer] on Communications and Marketing. This information is provided for general education only. Individuals should consult a qualified health care provider for professional medical advice, diagnosis and treatment of a medical or health condition. 2014 [employer] See more at: [email or web address] Assessment & Plan (04/08/2018 9:29 AM CDT): Seropositive RA with symptom flare on current certolizumab regimen after previous better control. Increased pain and prolonged morning stiffness accompanied by fatigue. Rapid3 16.0. Discussed trial alternate biologic response modifiers after current Cimzia supply depleted. Consider tofacitinib (Xeljanz) if insurance allows; alternatively abatacept (Orencia). He has previously failed adalimumab (Humira) and is intolerant methotrexate (pneumonitis). Will update lab and imaging hands (rule out progressive erosions). TOFACITINIB (XELJANZ) PATIENT INFORMATION: Tofacitinib citrate (Xeljanz ) is a coated tablet you swallow. The standard dosage is one 5 mg tablet taken twice a day. Tofacitinib s most common side effects are upper respiratory tract infections, diarrhea, headache, nasal congestion, sore throat and runny nose. Tofacitinib may lower your body s ability to fight infections, including TB. Watch for any signs of a possible infection, and don t take tofacitinib while you have an active infection until it is well controlled. Tofacitinib should not be used by people who have severe liver problems. It s unknown if tofacitinib is safe and effective in people with hepatitis B or C. Tofacitinib should be used with caution in people who have been told they are at a high risk of developing gastrointestinal perforation (a hole in the stomach, large bowel or small intestine). Before taking tofacitinib, tell your doctor if you have had TB, or if you have lived in or traveled to an area of the country or world where TB outbreaks are common. Tofacitinib may increase your risk of developing certain cancers, including lymphoma and some skin cancers, or activate hepatitis B or C if you are carrying those viruses. Tofacitinib citrate (Xeljanz ) is an oral, small molecule drug used to treat adults with [id number], active rheumatoid arthritis who have not responded well to being treated with methotrexate. Methotrexate is a disease-modifying antirheumatic drug (DMARD) used to treat rheumatoid arthritis (RA). Tofacitinib acts to block the body s production of enzymes called Janus kinases (JAKs). JAKs play a role in joint inflammation in RA, which can cause pain, swelling and stiffness. If left untreated, RA inflammation could lead to joint erosions, and organ and tissue damage. It may be used alone or in combination with methotrexate or other DMARDs. Tofacitinib is currently being studied for use in treating other autoimmune diseases, including psoriasis, psoriatic arthritis, ulcerative colitis, Crohn s disease and ankylosing spondylitis. HOW TO TAKE IT: Tofacitinib is a coated tablet that you swallow. The recommended dose is one 5 mg taken twice a day. People with moderate to severe renal impairment, or moderate hepatic impairment, should take only one 5 mg tablet per day. You may take tofacitinib tablets with or without food. Tofacitinib may be used alone to treat RA, or it may be used in combination with methotrexate or other DMARDs. However, it s not recommended to use tofacitinib with biologics, DMARDs, or with potent immunosuppressant drugs like azathioprine or cyclosporine. RISKS AND SIDE EFFECTS: Tofacitinib may reduce your body s ability to fight infection. Do not use tofacitinib if you have an active infection, even a localized infection, and don t start using tofacitinib again until your infection is well controlled. You should not take live vaccines while taking tofacitinib, but it s safe to take non-live vaccines. Some people who have taken tofacitinib have developed serious infections, such as tuberculosis (TB), invasive fungal infections, and bacterial and viral infections. You should watch carefully for the signs of infection during and after taking tofacitinib, including fever, chills, muscle aches, cough, body sores, diarrhea and pain when urinating. While taking tofacitinib, your doctor will test you regularly for changes to your blood or liver enzymes. Your doctor should test you for TB before you start taking tofacitinib, and watch you for signs of TB development while you are taking the drug. Before starting tofacitinib, you should tell your doctor if you have any medical condition that may make you more susceptible to infection, such as diabetes, HIV or a weak immune system. You should also tell your doctor if you have traveled or lived in any areas where there it is more likely to get certain fungal infections, or in countries where TB is widespread. Tofacitinib may increase your risk of certain cancers, such as lymphoma or some skin cancers, by suppressing your body s immune system responses. Some people taking tofacitinib, particularly those also taking nonsteroidal anti-inflammatory drugs (NSAIDs) or corticosteroids, may experience perforations or tears in their stomach or intestines, so tell your doctor if you have any unexplained stomach pain or changes in your bowel habits. Before starting tofacitinib, tell your doctor if you have had kidney or liver problems, or gastrointestinal problems like diverticulitis or ulcers. Some people taking drugs to prevent the rejection of a kidney transplant as well as taking tofacitinib have developed an Manuel-Cody virus-related infection, so tell your doctor if you have had a transplant and are taking these drugs. Tofacitinib also may lead to the activation of hepatitis B or C in people who carry those viruses. The most common side effects of tofacitinib include upper respiratory tract infections, diarrhea, headache, nasal congestion, sore throat and runny nose. It s unknown how tofacitinib may affect unborn children or be passed through breast milk, so or nursing women should weigh the possible risks and benefits of tofacitinib with their doctor. Tofacitinib s effectiveness may be reduced if taken with some antifungal and other medications, so tell your doctor about any medications you use before starting tofacitinib, or if you are preparing to get any vaccines. Updated March 2014. Written by Monica Padilla and reviewed by the [employer]. This information is provided for general education only. Individuals should consult a qualified health care provider for professional medical advice, diagnosis and treatment of a medical or health condition. 2014 [employer] See more at: [email or web address] ABATACEPT (ORENCIA) PATIENT INFORMATION: Abatacept (Orencia) is often prescribed after failure of a disease-modifying anti-rheumatic agent (DMARD), like methotrexate but it can be used as first-line therapy. Abatacept is used to reduce inflammatory symptoms such as swelling, pain, and stiffness. In the intermediate, it is expected to stop joint deformities, therefore helping to maintain range of motion. It is often used in patients with moderate to severe rheumatoid arthritis who have not responded to one or more DMARDs, such as methotrexate, or other biologic drugs. DMARDs are generally tried first. Abatacept may be used alone or in combination with DMARDs, which makes it more potent, but not with other biologic drugs (such as TNF inhibitors). Its use in other diseases is still being studied. Unlike some other biologic drugs, abatacept does not block inflammatory proteins like TNF-alpha antagonists. Abatacept attaches to the surface of inflammatory cells and blocks communication between these cells. By blocking this communication, abatacept lessens inflammation. HOW TO TAKE IT: Abatacept is available either in infusible or injectable form. The infusion is given intravenously (through a needle placed in a vein) at 0, 2, and 4 weeks, then monthly thereafter in your doctor's office or at an infusion center. The dosage is adjusted according to the patient s weight. It takes 30 minutes to receive the whole infusion. The injectable form of abatacept is injected under the skin at home once a week. It can be administered by the patient or another member of the home. Studies have shown this formulation to be as safe and effective as the infusion. Although some patients feel relief within the first month of treatment, usually three months of continuous treatment are needed to get the full effect of the medication. SIDE EFFECTS: The most common side effects reported were those associated with headaches, common colds, sore throat, and nausea. Rarely, patients may develop infusion reactions while receiving abatacept including a severe allergic reaction, hives, shortness of breath, and low blood pressure. Nurses will monitor you and your vital signs throughout the infusion. Pre-medications such as Tylenol or Benadryl can be used preventively and can be discussed with your doctor. The most important side effect is the risk of developing a serious infection, including pneumonia, tuberculosis, and others. Patients are tested for possible tuberculosis with a skin test or blood test before starting this drug. Abatacept should not be combined with another biologic drug, because the combination can increase the risk of jeff a serious infection. It is not yet clear if the risk of cancer is higher in patients on abatacept compared to patients with other drugs. Nevertheless, larger reports should demonstrate if there is any trend of possible cancer risk. Monitoring by your senior ui developer is necessary while taking this medication and lab monitoring may be needed periodically as well. Using two biologic drugs (such as TNF-alpha blockers and abatacept) at the same time carries high risk of developing serious infections. Patients who have previously received another biologic drug, such as a TNF-alpha td, can receive abatacept after the first drug has been stopped. Patients with diabetes mellitus should be aware that sugars in the infusion form of abatacept may cause false high blood sugar levels. You should discuss with your physician how to properly monitor this. TELL YOUR DOCTOR: Patients who have been exposed to people with suspected serious infections, such as tuberculosis, should notify their doctors before taking Orencia. All patients should be tested for tuberculosis before starting abatacept. Other laboratory tests may be required as well. Patients displaying symptoms of an infection - including fever, cough, or others - should notify their doctors. Patients should not receive live vaccines while receiving abatacept and should consult their senior ui developer before receiving a live vaccine afterwards. Risks in women are still being studied. Because biologics tend to be expensive, its availability may depend on your insurance formulary. Updated November 2016 by Fatoumata Severino MD and reviewed by the [employer].This information is provided for general education only. Individuals should consult a qualified health care provider for professional medical advice, diagnosis and treatment of a medical or health condition. 2017 [employer] - See more at: [email or web address] Assessment & Plan (12/03/2017 9:16 AM CDT): RA clinically stable on current med regimen. No med side effects reported. Continue same. 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 Continue certolizumab. Recent flare back, neck and shoulder pain following home remodeling discussed. No Rx required presently. Easily reducible hemorrhoids 08/22/2009 Overview (02/01/2025): Tx #1: 08/23/09 1.1 x 5 RP Tx #2: 08/29/09 1.1 x 6 LL Tx #3: 09/12/09 1.0 x 6 RA Tx #4: 09/26/09 1.1 x 6 RP Tx #5: 10/10/09 1.1 x 6 LL 08/29/19: No tx - fissure ?drained abscess Tx #6: 07/24/20 1.2 x 8 LL Tx #7: 08/14/20 1.2 x 6 RP and 1.2 x 4 RA External hemorrhoids 08/22/2009 Resolved Problems Problem Noted Date Diagnosed Date Resolved Date Drug indicated 12/14/2013 12/07/2018 Overview (12/11/2016): LONG-TERM USE MEDS NEC Immunizations Immunization Administration Dates Next Due Hep B Vaccine 09/15/2019 Hep B, Adolescent or Pediatric 04/08/1999,1998,10/08/1998 Influenza, Quadrivalent, Jyoti l Culture-based MDCK, Antibiotic Free, Intramuscular 06/02/2019 Influenza, Quadrivalent, Spl it, Intramuscular 06/05/2016 Influenza, Quadrivalent, Spl it, Preservative Free, Intradermal 05/08/2016 Influenza, Quadrivalent, Spl it, Preservative Free, Intramuscular 05/27/2022,06/26/2018,05/27/2018,06/11 Influenza, Split 05/19/2012 Influenza, Trivalent, IM (MDV) 06/14/2014,2012 Influenza, Trivalent, Split, Preservative Free, Intradermal 07/02/2015,06/14/2014 Influenza, Unspecified 06/07/2017 Pneumococcal Conjugate PCV 13 07/02/2015 Pneumococcal Polysaccharide PPV23 06/14/2013,06/2008 Social History Tobacco Use Types Packs/Day Years Used Date Smoking Tobacco: Every Day Cigarettes Last attempted to quit: 03/2021 Smokeless Tobacco: Never Tobacco Cessation:Ready to Q uit: Not Asked; Counseling Given: Not Answered Comments:attempting to quit Alcohol Use Standard Drinks/Week Comments Yes 0 (1 standard drink = 0.6 oz pur e alcohol) rare AUDIT-C Answer Date Recorded Q1: How often do you have a drink containing alcohol? Never 02/01/2025 Q2: How many drinks containi ng alcohol do you have on a typical day when you are drinking? Patient does not drink Q3: How often do you have si x or more drinks on one occasion? 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 Gender Identity Not on file Sexual Orientation Not on file Last Filed Vital Signs Vital Sign Reading Time Taken Comments Blood Pressure 132/82 02/01/2025 7:58 AM CDT Pulse 80 02/01/2025 7:58 AM CDT Temperature 36.5 C (97.7 F) 02/01/2025 7:58 AM CDT Respiratory Rate 18 12/08/2023 8:02 AM CDT Oxygen Saturation 97% 02/01/2025 7:58 AM CDT Inhaled Oxygen Concentration - - Weight 84.1 kg (185 lb 4.8 oz) 02/01/2025 7:58 A M CDT Height 177.8 cm (5' 10) 02/01/2025 7:58 AM CDT Body Mass Index 26.59 02/01/2025 7:58 AM CDT Plan of Treatment Not on file Medical Devices Implanted Type Area Teenage Program Director Device Identifier Shelf Expiration Date Model / Serial / Lot Total Joint Left: Hip Screws Left: Knee Procedures Procedure Name Priority Date/Time Associated Diagnosis Comments EGFR Routine 02/01/2025 8:51 AM CDT Encounter for long-term (current) use of high-risk medication CBC WITHOUT DIFFERENTIAL Routine 02/01/2025 8:51 AM CDT Encounter for long-term (current) use of high-risk medication COMPREHENSIVE METABOLIC PANEL Routine 02/01/2025 8:51 AM CDT Encounter for long-term (current) use of high-risk medication ERYTHROCYTE SEDIMENTATION RATE Routine 02/01/2025 8:51 AM CDT Rheumatoid arthritis involving multiple sites with positive rheumatoid factor (HCC) from Last 3 Months Results * eGFR (02/01/2025 8:51 AM CDT) eGFR >90 >=60 mL/min/1. 73 m2 Comment: Interpretive Data Reference Interval Normal >/= 90 mL/min/1.73m2 Mildly decreased* 60 - 89 mL/min/1.73m2 Mildly to moderately decreased 45 - 59 mL/min/1.73m2 Moderately to severely decreased 30 - 44 mL/min/1.73m2 Severely decreased 15 - 29 mL/min/1.73m2 Kidney Failure < 15 mL/min/1.73m2 *Relative to young adult level Estimated glomerular filtration rate is determined by the 2020 CKD-EPI equation recommended by the National Kidney Foundation (A Unifying Approach to GFR Estimation: Recommendations of the NKF-ASK Task Force on Reassessing the Inclusion of Race in Diagnosing Kidney Disease, JASN 202). The CKD-EPI equation should not be used for patients with unstable renal function and has not been validated in children and those over 70. Current interpretive data was last reviewed 2021. Blood 02/01/2025 8:51 AM CDT 02/01/2025 9:28 AM CDT Jessica Tyson MD LAB BLOOD ORDERABLES Final Result Performing Organization Address City/[facility]/ZIP Co de Phone Number [facility] [address] [place] [address] * Erythrocyte sedimentation rate (02/01/2025 8:51 AM CDT) Erythrocyte sedimentation rate 16 1 - 20 mm/hr Blood 02/01/2025 8:51 AM CDT 02/01/2025 9:28 AM CDT Jessica Tyson MD LAB BLOOD ORDERABLES Final Result Performing Organization Address City/[facility]/ZIP Co de Phone Number [facility] [address] [place] [place] [address] * (ABNORMAL) CBC without differential (02/01/2025 8:51 AM CDT) WBC 9.88 3.80 - 9.90 K/cumm Hgb 15.0 13.0 - 17.5 g/dL [facility] Hct 43.3 38.9 - 50.3 % [facility] Plt 187 150 - 400 K/cumm [facility] MPV 11.2 9.1 - 12.3 fL [facility] RBC 4.44 4.30 - 5.80 M/cumm [facility] MCV 97.5(H) 81.3 - 96.4 fL [facility] MCH 33.8(H) 27.1 - 33.3 pg [facility] MCHC 34.6 32.3 - 35.7 g/dL [facility] RDW CV 12.7 11.1 - 14.9 % [facility] RDW SD 45.6 35.7 - 48.1 fL [facility] NRBC abs 0.00 0.00 - 0.01 K/cumm [facility] Blood 02/01/2025 8:51 AM CDT 02/01/2025 9:28 AM CDT us Jessica Tyson MD LAB BLOOD ORDERABLES Final Result [facility] [address] Department [place] [address] * Comprehensive metabolic panel (02/01/2025 8:51 AM CDT) Sodium 141 135 - 145 mmol/L Potassium, pl 4.5 3.3 - 4.9 mmol/L [facility] Chloride 107 97 - 110 mmol/L [facility] CO2 23 22 - 32 mmol/L [facility] Anion gap 11 2 - 15 mmol/L [facility] BUN 14 6 - 25 mg/dL [facility] Creatinine 0.85 0.80 - 1.30 mg/dL [facility] Glucose 93 70 - 199 mg/dL [facility] Comment: Interpretive Data Fasting glucose >/= 126 mg/dl is diagnostic for diabetes. Fasting is defined as no caloric intake for at least 8 hours. Fasting glucose between 100 mg/dl to 125 mg/dl is diagnostic of prediabetes. In a patient with classic symptoms of hyperglycemia or hyperglycemic crisis, a random glucose >/= 200 mg/dl is diagnostic for diabetes. In the absence of unequivocal hyperglycemia, results should be confirmed by repeat testing. The classification and Diagnosis of Diabetes Diabetes Care 2021; 46: S19-S40. Current interpretive data was last revised 2022. Calcium 9.4 8.5 - 10.3 mg/dL [facility] Bilirubin, total 0.2 0.1 - 1.2 mg/dL [facility] Protein, pl 6.7 6.5 - 8.5 g/dL [facility] Albumin 3.8 3.5 - 5.0 g/dL [facility] Alk phos 100 40 - 130 Units/L [facility] ALT 32 7 - 55 Units/L [facility] AST 23 10 - 50 Units/L [facility] Blood 02/01/2025 8:51 AM CDT 02/01/2025 9:28 AM CDT us Jessica Tyson MD LAB BLOOD ORDERABLES Final Result [facility] [address] Department [place] [address] from Last 3 Months Insurance [facility] Address: [facility] [address] [place] [address] [employer] [facility]PP[facility] Address: [address] [address] [place] [address] [facility] [employer] Advance Directives For more information, please contact: [phone] * Full Code (Latest Code Status on File) Date Activated Date Inactivated Comments 10/14/2019 9:23 AM 10/14/2019 2:31 PM * Full Code Date Activated Date Inactivated Comments 09/14/2019 7:52 AM 09/14/2019 1:51 PM Care Teams Cylinder Block Hole Reliner Relationship Specialty Start Date End Date Babak Levin MD PCP - General Family Practice 09/14/20 Santa Woodward MD Referring Physician Surgery 10/14/19
--- OUTSIDE RECORDS SUMMARY | 2025-02-06 14:14 | XMS_ITS | Clinical Summary ---
Author Organization [facility] Address [address] [place] [address] Care Team Providers Care Wood Router Hand Name Role Phone Santa Woodward MD Unavailable [phone] Babak Levin MD Primary Care Provider Allergies Active Allergy Reactions Criticality Noted Date [...] Dosepack follow package directions 1 packet 02/02/20 25 Active BREO ELLIPTA 200-25 mcg/dose diskus inhaler [...] every 7 days 4 mL 3 09/19/19 25 05/13/2 025 Discontinued Active Problems Problem Noted Date [...] (02/16/2020): Added automatically from request for surgery [id number] Advice given about 2019 novel coronavirus by tel sreedhar 01/24/2020 Assessment & Plan (01/24/2020 9:58 AM CDT): The full impact of autoimmune diseases and immunomodulatory medications on susceptibility and complications of coronavirus disease is not yet studied. Because we have monogram maker with this new virus we do not [...] that you continue to adhere to the zthq-ww-jjsg orders for the time being, especially in view of your potentially immunocompromised status. Feel free to reach out to us if you have additional questions after you review this information. You may review the current [employer] Covid-19 clinical guidance for Patients with Rheumatic Diseases if you copy and paste the link below into your web browser: [email or web address] uwjxkcf-mopj-Rtydaybxq-Diseases.pdf Of course, Actemra should be placed on hold in the event you were to become ill. Peptic ulcer without hemorrhage or perforation 0 10/17/2019 Assessment & Plan (10/17/2019 10:02 AM GENERAL HELPER): Reviewed EGD with duodenal and gastric ulcer. Completed 30 day Prilosec as ordered by Dr. Hernandez. Follow up endoscopy 11/23/2019. May use Pepcid AC in the interim if needed for heartburn/dyspepsia. History of pneumonia 10/17/2019 Overview (10/17/2019): pneumonia Perianal abscess 10/06/2019 Overview (10/06/2019): Added automatically from request for surgery [id number] Assessment & Plan (01/24/2020 10:16 AM CDT): Management per Dr. Woodward. If continues to recur may need to discontinue Actemra; hopefully it will not come to that. Assessment & Plan (10/17/2019 10:05 AM GENERAL HELPER): Incision and drainage 10/14/2019 (Dr. Woodward). Acute [...] M.D. Result History US Abdomen Complete (Order #[id number]) on 04/25/2019 - Order Result History Report Assessment & Plan (01/24/2020 9:55 AM CDT): Currently symptom free. Update lab as per orders. Assessment & Plan (10/17/2019 9:49 AM GENERAL HELPER): EGD and EUS reviewed. Impression: EGD impression: [...] BID for 1 month ([facility] - Return to Dr Hunter's [...] Plan (03/29/2019 9:52 AM CDT): Evaluated in [facility] ER 2018 when patient presented with chest [...] 12/2018: XR Knee Left AP Lat Alcaraz [place] Status: Final result Study Result EXAM: XR [...] History XR Knee Left AP Lat Alcaraz [place] (Order #[id number]) on 12/07/2018 - Order Result History Report [...] advantage. Assessment & Plan (10/17/2019 10:00 AM GENERAL HELPER): Smoke cessation efforts reviewed. Reinforce importance tobacco cessation! Please check out the CDC tobacco cessation website: https://www.cdc.gov/tobacco/ We can offer Chantix to help reduce craving and withdrawal if you wish to try. You may read read about Chantix online. www.chantix.KangaDo Assessment & Plan (08/05/2017 9:22 AM GENERAL HELPER): Pulmonary issues managed by Dr. Jorge santos. [...] are complete. Avoid live-vaccines unless reviewed with straw hat brim raiser operator first. Assessment & Plan (03/28/2022 8:21 AM CDT): Long-term use of high-risk medication requiring regular monitoring. Labs ordered, no s/s of med tox or infection. Encouraged to work with PCP to make sure all recommended cancer screens and vaccinations are complete. Avoid live-vaccines unless reviewed with straw hat brim raiser operator first. Screening Ophthalmological Evaluation Request Medication: Hydroxychloroquine [...] written. Assessment & Plan (10/17/2019 9:48 AM GENERAL HELPER): Patient on medications requiring periodic lab monitoring [...] written. Assessment & Plan (09/30/2018 9:41 AM GENERAL HELPER): Patient on immunosuppressive medications requiring periodic lab [...] written. Assessment & Plan (08/05/2017 9:23 AM GENERAL HELPER): Patient on immunosuppressive medications requiring periodic lab monitoring for drug safety. Update lab as per orders written. Assessment & Plan (04/15/2017 9:25 AM CDT): Patient on immunosuppressive medications requiring periodic lab monitoring for drug safety. Update lab as per orders written. Overweight with body mass index (BMI) 25.0-29.9 04/15/2017 Assessment & Plan (10/17/2019 10:01 AM GENERAL HELPER): An optimal BMI (body mass index) is [...] delacruz to weight management. Assessment & Plan (09/30/2018 9:41 AM GENERAL HELPER): An optimal BMI (body mass index) is [...] management. Assessment & Plan (08/05/2017 9:22 AM GENERAL HELPER): Stable, near normal. An optimal BMI is [...] week. Assessment & Plan (10/17/2019 9:46 AM GENERAL HELPER): Clinically stable. He has missed the last [...] flare L knee. Patient was seen in [facility] for chest pain with ?pancreatitis (elevated [...] as swelling, pain, and stiffness. In the intermediate teacher, it is expected to stop joint deformities, [...] of possible cancer risk. Monitoring by your straw hat brim raiser operator is necessary while taking this medication and [...] while receiving abatacept and should consult their straw hat brim raiser operator before receiving a live vaccine afterwards. Risks in women are still being studied. Because biologics tend to be expensive, its availability may depend on your insurance formulary. Updated November 2016 by Fatoumata Severino MD and reviewed by the [employer] Committee on Communications and Marketing.This information is provided for general education only. Individuals should consult a qualified health care provider for professional medical advice, diagnosis and treatment of a medical or health condition. 2017 [employer] - See more at: https://www.[email or web address].org/I-Am-A/Patient-Caregiver/Treatments/Abatacept-Orenc ia#st hash.[email or web address].dpuf Assessment & Plan (12/07/2018 9:44 PM CDT): [...] same. Assessment & Plan (09/30/2018 9:40 AM GENERAL HELPER): Continued synovitis, fatigue and stiffness on current [...] molecule drug used to treat adults with joitplbf-ur-pyriup, active rheumatoid arthritis who have not responded [...] by Monica Padilla and reviewed by the [employer] Committee on Communications and Marketing. This information is provided for general education only. Individuals should consult a qualified health care provider for professional medical advice, diagnosis and treatment of a medical or health condition. 2014 [employer] See more at: https://www.[email or web address].org/I-Am-A/Patient-Caregiver/Treatments/Tofacitinib-Cit [...] molecule drug used to treat adults with hlmfpmat-ut-ziwxzm, active rheumatoid arthritis who have not responded [...] well as taking tofacitinib have developed an Manuel-Cdoy virus-related infection, so tell your doctor if [...] by Monica Padilla and reviewed by the [employer] Committee on Communications and Marketing. This information is provided for general education only. Individuals should consult a qualified health care provider for professional medical advice, diagnosis and treatment of a medical or health condition. 2014 [employer] See more at: https://www.rheumatology.org/I-Am-A/Patient-Caregiver/Treatments/Tofacitinib-Cit rate- Xeljanz#sthash.[email or web address].dpuf ABATACEPT (ORENCIA) PATIENT INFORMATION: Abatacept (Orencia) is often prescribed after failure of a disease-modifying anti-rheumatic agent (DMARD), like methotrexate but it can be used as first-line therapy. Abatacept is used to reduce inflammatory symptoms such as swelling, pain, and stiffness. In the intermediate teacher, it is expected to stop joint deformities, [...] of possible cancer risk. Monitoring by your straw hat brim raiser operator is necessary while taking this medication and [...] while receiving abatacept and should consult their straw hat brim raiser operator before receiving a live vaccine afterwards. Risks in women are still being studied. Because biologics tend to be expensive, its availability may depend on your insurance formulary. Updated November 2016 by Fatoumata Severino MD and reviewed by the [employer] Committee on Communications and Marketing.This information is provided for general education only. Individuals should consult a qualified health care provider for professional medical advice, diagnosis and treatment of a medical or health condition. 2017 [employer] - See more at: https://www.[email or web address]/I-Am-A/Patient-Caregiver/Treatments/Abatacept-Orenc ia#st hash.[email or web address].dpuf Assessment & Plan (12/03/2017 9:16 AM CDT): RA clinically stable on current med regimen. No med side effects reported. Continue same. Assessment & Plan (08/05/2017 9:24 AM GENERAL HELPER): Clinically stable. Continue certolizumab. Recent flare back, [...] 12/07/2018 Overview (12/11/2016): LONG-TERM USE MEDS NEC Encounters Date Type Department Care Team Description 02/01/2025 8:35 AM CDT Lab [facility] Outpatient Lab [address] [place] [id number] Encounter for long-term (current) use of high-risk medication; Rheumatoid arthritis involving multiple sites with positive rheumatoid factor (HCC) 02/01/2025 8:00 AM CDT Office Visit [facility] at [facility] [address] [place] [address] Jessica Tyson MD Rheumatoid arthritis involving multiple sites with positive rheumatoid factor (HCC) (Primary Dx); Encounter for long-term (current) use of high-risk medication; Bilateral carpal tunnel syndrome from Last 3 Months Immunizations Immunization Administration Dates Next Due Hep [...] PCV 13 07/02/2015 Pneumococcal Polysaccharide PPV23 06/14/2013,06/2008 Surgical History Surgery Date Site/Laterality Comments OTHER SURGICAL HISTORY 09/07/2009 - 09/06/2010 laryngeal polyp: polypectomy x 3 HERNIA REPAIR x3 Hernia repair OTHER SURGICAL HISTORY Vocal Cord Polypectomy LAMINECTOMY Laminectomy KNEE SURGERY Knee surgery INGUINAL HERNIA REPAIR Hernia repair, inguinal BACK SURGERY x3 Back surgery OTHER SURGICAL HISTORY 09/07/1990 - 09/06/1991 lumbar diskectomy and fusion OTHER SURGICAL HISTORY 09/07/1992 - 09/06/1993 bone stimulator removed KNEE SURGERY 09/07/2001 - 09/06/2002 left knee surgery OTHER SURGICAL HISTORY 09/07/2008 - 09/06/2009 polyps removed from his vocal cords HIP ARTHROPLASTY 09/07/2013 - 09/06/2014 left hip replacement OTHER SURGICAL HISTORY Tooth removed and Implant placed CATARACT EXTRACTION 11/16/2017 Right COLONOSCOPY RECTAL SURGERY 10/08/2019 - 11/05/2019 hemorrhoid issues RECTAL SURGERY 02/06/2020 - 03/06/2020 hemorrhoid issues Medical History Medical History Date Comments Hx Other Medical 2002 L MCL Reconstru ction Hx Other Medical laryngeal polyp Hx Other Medical Chronic Anxiety Pneumonia pneumonia Cataract COPD (chronic obstructive pulmonary disease) (HC C) Arthritis Rheumatoid arthritis (HCC) Hyperlipidemia Pancreatitis chronic Covid-19 Family History Medical History Relation Name Comments Scoliosis Mother Scoliosis; Other Other No family histo ry of Coronary artery disease, premature; Relation Name Status Comments Father Mother Alive Other Social History Tobacco Use Types Packs/Day Years [...] on file Legal Sex Male 9:57 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 Gender Identity Not on file Sexual Orientation Not on file Obstetrics History Last Filed Vital Signs Vital Sign Reading [...] 02/01/2025 7:58 AM CDT Plan of Treatment Health Maintenance Due Date Last Done Comments Colon Cancer Screening-Colonoscopy 1962 Hepatitis C Screening 1962 Prostate Cancer Screening-PSA 1962 DTaP/Tdap/Td Vaccine (1 - Tdap) 1973 Regular Well Visit/Exam 18-64 1980 Zoster Vaccine (1 of 2) 1981 Depression Screening 09/30/2019 09/30/2018, 07/08/20 18 Pneumococcal vaccine <65 (4 of 4 - PCV20 or PCV21) 07/02/2020 07/02/2015, 06/14/2013, 08/16/2008 Influenza Vaccine (Season Ended) 2025 05/27/2022, 06/02/2019, 06/26/2018, Additional history exists Hepatitis B Screening Completed 09/15/2019 , 04/08/1999, 11/07/1998, Additional history exists Medical Devices Implanted Type Area Power Electronics Engineer Device Identifier Shelf Expiration Date Model / [...] of Race in Diagnosing Kidney Disease, JASN 2020). The CKD-EPI equation should not be used for patients with unstable renal function and has not been validated in children and those over 70. Current interpretive data was last reviewed 2021. Blood 02/01/2025 8:51 AM CDT 02/01/2025 9:28 AM CDT Jessica Tyson MD LAB BLOOD ORDERABLES Final Result [facility] [address] [place] [address] * Erythrocyte sedimentation rate (02/01/2025 8:51 AM CDT) Erythrocyte sedimentation rate 16 1 - 20 mm/hr Blood 02/01/2025 8:51 AM CDT 02/01/2025 9:28 AM CDT Jessica Tyson MD LAB BLOOD ORDERABLES Final Result Performing Organization Address City/[facility]/ZIP Co de Phone Number [facility] [address] [place] [address] * (ABNORMAL) CBC without differential (02/01/2025 8:51 AM CDT) WBC 9.88 3.80 - 9.90 K/cumm Hgb 15.0 13.0 - 17.5 g/dL [facility] Hct 43.3 38.9 - 50.3 % [facility] Plt 187 150 - 400 K/cumm [facility] MPV 11.2 9.1 - 12.3 fL [facility] RBC 4.44 4.30 - 5.80 M/cumm [facility] MCV 97.5(H) 81.3 - 96.4 fL [facility] MCH 33.8(H) 27.1 - 33.3 pg [facility] MCHC 34.6 32.3 - 35.7 g/dL [facility] RDW CV 12.7 11.1 - 14.9 % [facility] RDW SD 45.6 35.7 - 48.1 fL [facility] NRBC abs 0.00 0.00 - 0.01 K/cumm [facility] Blood 02/01/2025 8:51 AM CDT 02/01/2025 9:28 AM CDT us Jessica Tyson MD LAB BLOOD ORDERABLES Final Result [facility] [address] [place] [address] * Comprehensive metabolic panel (02/01/2025 8:51 AM CDT) Sodium 141 135 - 145 mmol/L Potassium, pl 4.5 3.3 - 4.9 mmol/L [facility] Chloride 107 97 - 110 mmol/L [facility] CO2 23 22 - 32 mmol/L [facility] Anion gap 11 2 - 15 mmol/L [facility] BUN 14 6 - 25 mg/dL [facility] Creatinine 0.85 0.80 - 1.30 mg/dL [facility] Glucose 93 70 - 199 mg/dL [facility] Comment: Interpretive Data Fasting glucose >/= 126 [...] 2022. Calcium 9.4 8.5 - 10.3 mg/dL [facility] Bilirubin, total 0.2 0.1 - 1.2 mg/dL [facility] Protein, pl 6.7 6.5 - 8.5 g/dL [facility] Albumin 3.8 3.5 - 5.0 g/dL [facility] Alk phos 100 40 - 130 Units/L [facility] ALT 32 7 - 55 Units/L [facility] AST 23 10 - 50 Units/L [facility] Blood 02/01/2025 8:51 AM CDT 02/01/2025 9:28 AM CDT us Jessica Tyson MD LAB BLOOD ORDERABLES Final Result [facility] [address] [place] [address] from Last 3 Months Insurance [facility] [employer] Advance Directives For more information, please contact: [phone] * Full Code (Latest Code Status on File) Date Activated Date Inactivated Comments 10/14/2019 9:23 AM 10/14/2019 2:31 PM * Full Code Date Activated Date Inactivated Comments 09/14/2019 7:52 AM 09/14/2019 1:51 PM Care Teams Wood Router Hand Relationship Specialty Start Date End Date Babak Levin MD PCP - General Family Practice 09/14/20 Santa Woodward MD Referring Physician Surgery 10/14/19
--- OUTSIDE RECORDS SUMMARY | 2025-02-06 14:14 | XMS_ITS | Clinical Summary ---
Author Organization [facility] Address [address] [place] [address] Care Team Providers Care Wildlife Removal Specialist Name Role Phone Unavailable Primary Care Provider Unavailabl e Social History Tobacco Use Types Packs/Day Years Used Date Smoking Tobacco: Never Assessed Sex and Gender Information Value Date Recorded Sex Assigned at Not on file Legal Sex Male 11:28 PM CDT Gender Identity Not on file Sexual Orientation Not on file Plan of Treatment Health Maintenance Due Date Last Done Comments DTAP/TDAP/TD VACCINES (1 - Tdap) 1981 ZOSTER VACCINE (1 of 2) 1981 FIT-DNA Q 3 years 12/26/2007 FIT/FOBT Q 1 year 12/26/2007 Flex Sig/CT Colonography Q 5 years 12/26/2007 RSV VACCINE (60+ or ) (1 - Risk 60-74 years 1-dose series) 2022 COLORECTAL SCREENING 09/06/2023 09/06/2013 Colorectal Cancer Screening 09/06/2023 INFLUENZA VACCINE (#1) 2024 2, 06/02/2019, 06/26/2018, Additional history exists Insurance [facility] [employer] EX[employer] [id number]
[2025-02-06 14:18] VITALS: BP 130/91; PULSE 82; RESP 17; TEMP 37.1; O2SAT 96
[2025-02-06 14:25] LABS: Basophils Percent Auto 0.3 % (0.2-1.2); Eosinophils Absolute Auto 0.3 K/mm3 (0-0.3); Eosinophils Percent Auto 2.8 % (0-4.4); Hematocrit 50.6 % (42.0-52.0); Hemoglobin 17.3 g/dL (14.0-18.0); Immature Granulocyte Absolute 0.05 K/mm3 (0.00-0.031); Immature Granulocyte Percent A 0.5 % (0-0.5); Lymphocytes Absolute Auto 1.83 K/mm3 (0.9-3.2); Lymphocytes Percent Auto 17.5 % (18.3-44.2); Mean Corpuscular HGB Conc 34.2 g/dl (32-36); Mean Corpuscular Hemoglobin 33.3 pg (26-34); Mean Corpuscular Volume 97.5 fl (80-100); Mean Platelet Volume 10.6 fl (7.4-10.4); Monocytes Absolute Auto 1.3 K/mm3 (0.1-0.6); Monocytes Percent Auto 12.1 % (2.6-8.5); Neutrophils Percent Auto 66.8 % (45.5-73.1); Platelet Count Result 213 k/mm3 (150-375); Red Blood Count 5.19 M/mm3 (4.6-6.20); Red Cell Distribution Width 12.7 % (11.5-14.5); White Blood Count 10.4 K/mm3 (4.5-10.0)
[2025-02-06 15:12] VITALS: BP 139/98; PULSE 78; RESP 20; O2SAT 96
--- NOTE | 2025-02-06 15:17 | PC.NURSE ---
Pt states unable to urinate at this time
[2025-02-06 15:24] LABS: Alanine Aminotransferase 28 U/L (6-50); Albumin Level 4.6 g/dL (3.5-5.1); Alkaline Phosphatase 85 U/L (38-126); Anion Gap 13 mmol/L (4-12); Aspartate Amino Transferase 32 U/L (17-59); Bilirubin,Total 0.7 mg/dL (0.2-1.3); Blood Urea Nitrogen 31 mg/dL (9-20); Carbon Dioxide 19 mmol/L (22-30); Chloride 106 mmol/L (98-107); Estimated CRCL calculation 57 ml/min; Estimated Glomerular Filt Rate 60; Glucose 102 mg/dL (65-110); Potassium 4.2 mmol/L (3.4-5.0); Sodium 138 mmol/L (137-145)
--- OUTSIDE RECORDS SUMMARY | 2025-02-06 15:34 | XMS_ITS | Encounter Summary ---
Author Organization [facility] Address [address] [place] [place] [address] Care Team Providers Care Reproduction Artist Name Role Phone Babak Levin MD Primary Care Provider Encounter Details Date Type Department Care Team (Late Contact Info) Description 02/06/2022 Lab Requisition 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 OFFICER [address] [facility] [address] [place] [id number] documented as of this encounter Procedures Procedure Name Priority Date/Time Associated Diagnosis Comments DERMATOPATHOLOGY Routine 02/05/2022 12:0 0 AM CDT documented in this encounter Results * DERMATOPATHOLOGY (02/05/2022 12:00 AM CDT) Case Report Dermatopathology Report Case: [id number] Authorizing Provider: Jono Hager MD Collected: 02/05/2022 12:00 AM Ordering Location: [facility] Derm[facility] Lab Received: 02/06/2022 01:51 PM [...] specimen consists of a shave biopsy measuring [id number]. Jar 0. 3:43 PM CDT DERMATOPATHOLOGY LABORATORY [...] characteristic determined by the Dermatopathology Laboratory at [facility], directed by Dr. Yusef Hurd. These tests need not be, and therefore are not, approved by the [place] Food and Drug Administration. The tests are used for clinical purposes. Billing Codes Specimen Charges Stain Charges 78839 1 2 3:43 PM CDT DERMATOPATHOLOGY LABORATORY Embedded Images 3:43 PM CDT DERMATOPATHOLOGY LABORATORY Pathology/Cytolog y TISSUE SPECIMEN FROM SKIN / Unknown 02/05/2022 02/06/2022 1:51 PM CDT Jono Hager MD LAB - PATHOLOGY/CYTOLOGY ORD ERABLES Final Result DERMATOPATHOLOGY LABORATORY [facility] - Department of Dermatology [facility] [address] [place] [address], [address]rd [address] [phone] documented in this encounter Visit Diagnoses Not on filedocumented in this encounter Care Teams Reproduction Artist Relationship Specialty Start Date End Date Babak Levin MD [address] [facility] [address] [address] PCP - General Family Medicine 04/14/23 documented as of this encounter
--- OUTSIDE RECORDS SUMMARY | 2025-02-06 15:34 | XMS_ITS | Continuity of Care Document ---
Author Organization [facility] Address [address] [place] [address] Phone Care Team Providers Care Silk Winding Machine Operator Name Role Phone Triston Jauregui MD Unavailable Unavailable Allergies, Adverse Reactions, Alerts Substance Reaction Status Criticality No Known Allergies Active No Inform ation Medications Medication Instructions Dosage Effective Dates (start - stop) Status Comments cyclobenzaprine 10 mg tablet take 1 tablet by oral route 3 times every day as needed 10 MG - Active Duexis 800 mg-26.6 mg tablet take 1 tablet by oral route 3 times every day - Active tamsulosin 0.4 mg capsule take 1 capsule by oral route every day 1/2 hour following the same meal each day 0.4 MG - Active atorvastatin 40 mg tablet take 1 tablet by oral route every day 40 MG - Active alprazolam 0.5 mg tablet take 1 tablet by oral route 3 times every day 0.5 MG - Active CIMZIA (2 PACK) (unknown strength) Not Available - Active TRAZODONE HCL (unknown strength) Not Available - Active Procedures Procedure Date OFFICE/OUTPATIENT VISIT NEW Advance Directives Directive Yes / No Effective Date File Name No Information Encounters Encounter Description Practice Location Reason(s) For Visit Diagnoses Date Provider Providers Copied on Encounter [facility], [address], [place], [address], [place] tel:[phone] O - [facility] [address] No Information 8 Shania Goldstein. [address] [place], [place], [id number]. tel:[phone] OFFICE/OUTPA TIENT VISIT [facility], [address] [place] [address], [address], tel:[phone] [facility] Body mass index (BMI) 27.0-27.9, adultCervicalg iaSpondylosis of cervical region without myelopathy or radiculopathy 8 Shania Goldstein. [address] [place], [place], [id number]. tel:[phone] [facility], [address] [place] [address], [address], tel:[phone] [facility] Follow Up of lbp (chief complaint) Spinal stenosis of lumbar region - 5 Elvia Goldstein. [address] [place] [address], [id number]. tel:[phone] [facility], [address] [place] [address], [address], tel:[phone] [facility] epidural steroid injection (chief complaint) Lumbosacral spondylosis without myelopathySpin al stenosis of lumbar region 4 Elvia Goldstein. [address] [place] [address], [id number]. tel:[phone] Family History Family Member Type Diagnosis Age At Onset Mother Problem (finding) Alive and well Payers Payer name Insurance type Covered libertarian ID Authoriza tion(s) No Information Social History Type Description Quantity Date Captured Comments Alcohol Use Details Unknown Caffeine Use Details Unknown Tobacco Use Status Smoking Status No Information Sex Male Chief Complaint And Reason For Visit No Information Reason For Referral Reason For Referral No Information Plan Of Treatment Date Type Action Status Goal Smoking cessation education completed History Of Present Illness Encounter Date Complaint History Of Prese nt Illness Follow Up of lbp Increasing LBP with occasional right leg pain with prolonged walking/standing. HH and meds reviewed. No blood thinner. epidural steroid injection Incre asing LBP with some right leg soreness. Last seen in 2010. Requesting injection. MRI from years ago noted in previous dictations. I do not have the formal report to review. HH and meds reviewed. Functional Status Date Functional Assessmen t No Information Instructions Date Instruction Additional Infor luis miguel Activity as tolerated. Related t o Spondylosis of cervical region without myelopathy or radiculopathy Avoid prolonged bed rest. Relate d to Spondylosis of cervical region without myelopathy or radiculopathy Activity as tolerated. Related t o Spinal stenosis of lumbar region Take medication as directed. Rel ated to Spinal stenosis of lumbar region Assessments Type Assessment Date No Information Patient Care Teams Name Effective Dates (start - stop) Status Members No Information
--- OUTSIDE RECORDS SUMMARY | 2025-02-06 15:34 | XMS_ITS | Encounter Summary ---
Author Organization [facility] Address [address] [place] [address] Phone Care Team Providers Care Optical Laboratory Technician Name Role Phone Rafiq Dawson MD Primary Care Provider [phone] Mindy Ladd MD Primary Care Provider Santa Woodward MD Unavailable [phone] Babak Levin MD Primary Care Provider Encounter Details Date Type Department Care Team (Late st Contact Info) Description 12/03/2017 Orders Only [facility] ProviderValdo MD [address] [place] [address] Social History Tobacco Use Types Packs/Day Years Used Date Smoking Tobacco: Heavy Smoker Smokeless Tobacco: Never Comments:Smoking History Pac ks/day: 1 Packs Alcohol Use Standard Drinks/Week Comments No 0 (1 standard drink = 0.6 oz pur e alcohol) Sex and Gender Information Value Date Recorded Sex Assigned at Not on file 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
--- OUTSIDE RECORDS SUMMARY | 2025-02-06 15:34 | XMS_ITS | Referral Summary ---
Author Organization [facility] Address [address] [place] [address] Care Team Providers Care Fleet Service Manager Name Role Phone Santa Woodward MD Unavailable [phone] Babak Levin MD Primary Care Provider Encounters Date Type Department Care Team Description 02/01/2025 8:35 AM CDT Lab [facility] Outpatient Lab [address] [place] [address] Encounter for long-term (current) use of high-risk medication; Rheumatoid arthritis involving multiple sites with positive rheumatoid factor (HCC) 02/01/2025 8:00 AM CDT Office Visit [facility] at [facility] [address] [facility] [address] [place] [address] Jessica Tyson MD Rheumatoid arthritis [...] (02/16/2020): Added automatically from request for surgery [id number] Advice given about 2019 novel coronavirus by tel sreedhar 01/24/2020 Assessment & Plan (01/24/2020 9:58 AM CDT): The full impact of autoimmune diseases and immunomodulatory medications on susceptibility and complications of coronavirus disease is not yet studied. Because we have allergist/pediatric pulmonologist with this new virus we do not [...] that you continue to adhere to the ewaj-ye-hjex orders for the time being, especially in view of your potentially immunocompromised status. Feel free to reach out to us if you have additional questions after you review this information. You may review the current [employer] Covid-19 clinical guidance for Patients with Rheumatic Diseases if you copy and paste the link below into your web browser: [email or web address].rheumatology.org/Portals/0/Files/[email or web address]-Dlgkliix-Rcgsjgvk-Lslk malathi-P ziuixzt-qoer-Sumoctxim-Diseases.pdf Of course, Actemra should be placed on hold in the event you were to become ill. Peptic ulcer without hemorrhage or perforation 0 10/17/2019 Assessment & Plan (10/17/2019 10:02 AM PARK AIDE): Reviewed EGD with duodenal and gastric ulcer. Completed 30 day Prilosec as ordered by Dr. Hernandez. Follow up endoscopy 11/23/2019. May use Pepcid AC in the interim if needed for heartburn/dyspepsia. History of pneumonia 10/17/2019 Overview (10/17/2019): pneumonia Perianal abscess 10/06/2019 Overview (10/06/2019): Added automatically from request for surgery [id number] Assessment & Plan (01/24/2020 10:16 AM CDT): Management per Dr. Woodward. If continues to recur may need to discontinue Actemra; hopefully it will not come to that. Assessment & Plan (10/17/2019 10:05 AM PARK AIDE): Incision and drainage 10/14/2019 (Dr. Woodward). Acute [...] M.D. Result History US Abdomen Complete (Order #[id number]) on 04/25/2019 - Order Result History Report Assessment & Plan (01/24/2020 9:55 AM CDT): Currently symptom free. Update lab as per orders. Assessment & Plan (10/17/2019 9:49 AM PARK AIDE): EGD and EUS reviewed. Impression: EGD impression: [...] [facility] - Return to Dr Hunter's office in [...] Plan (03/29/2019 9:52 AM CDT): Evaluated in [facility] ER 2018 when patient presented with chest [...] 12/2018: XR Knee Left AP Lat [place] Status: Final result Study Result EXAM: XR [...] History XR Knee Left AP Lat [place] (Order #[id number]) on 12/07/2018 - Order Result History Report [...] advantage. Assessment & Plan (10/17/2019 10:00 AM PARK AIDE): Smoke cessation efforts reviewed. Reinforce importance tobacco cessation! Please check out the CDC tobacco cessation website: https://www.cdc.gov/tobacco/ We can offer Chantix to help reduce craving and withdrawal if you wish to try. You may read read about Chantix online. www.chantix.[facility] Assessment & Plan (08/05/2017 9:22 AM PARK AIDE): Pulmonary issues managed by Dr. Jorge santos. [...] are complete. Avoid live-vaccines unless reviewed with diversity manager first. Assessment & Plan (03/28/2022 8:21 AM CDT): Long-term use of high-risk medication requiring regular monitoring. Labs ordered, no s/s of med tox or infection. Encouraged to work with PCP to make sure all recommended cancer screens and vaccinations are complete. Avoid live-vaccines unless reviewed with diversity manager first. Screening Ophthalmological Evaluation Request Medication: Hydroxychloroquine [...] written. Assessment & Plan (10/17/2019 9:48 AM PARK AIDE): Patient on medications requiring periodic lab monitoring [...] written. Assessment & Plan (09/30/2018 9:41 AM PARK AIDE): Patient on immunosuppressive medications requiring periodic lab [...] written. Assessment & Plan (08/05/2017 9:23 AM PARK AIDE): Patient on immunosuppressive medications requiring periodic lab monitoring for drug safety. Update lab as per orders written. Assessment & Plan (04/15/2017 9:25 AM CDT): Patient on immunosuppressive medications requiring periodic lab monitoring for drug safety. Update lab as per orders written. Overweight with body mass index (BMI) 25.0-29.9 04/15/2017 Assessment & Plan (10/17/2019 10:01 AM PARK AIDE): An optimal BMI (body mass index) is [...] management. Assessment & Plan (09/30/2018 9:41 AM PARK AIDE): An optimal BMI (body mass index) is [...] management. Assessment & Plan (08/05/2017 9:22 AM PARK AIDE): Stable, near normal. An optimal BMI is [...] week. Assessment & Plan (10/17/2019 9:46 AM PARK AIDE): Clinically stable. He has missed the last [...] flare L knee. Patient was seen in [facility] for chest pain with ?pancreatitis (elevated [...] as swelling, pain, and stiffness. In the fpc, it is expected to stop joint deformities, [...] of possible cancer risk. Monitoring by your diversity manager is necessary while taking this medication and [...] while receiving abatacept and should consult their diversity manager before receiving a live vaccine afterwards. Risks in women are still being studied. Because biologics tend to be expensive, its availability may depend on your insurance formulary. Updated November 2016 by Fatoumata Severino MD and reviewed by the [employer] Committee on Communications and Marketing.This information is provided for general education only. Individuals should consult a qualified health care provider for professional medical advice, diagnosis and treatment of a medical or health condition. 2017 [employer] - See more at: https://www.rheumatology.org/I-Am-A/Patient-Caregiver/Treatments/Abatacept-Orenc ia#st hash.[email or web address].dpuf Assessment & Plan (12/07/2018 9:44 PM CDT): [...] same. Assessment & Plan (09/30/2018 9:40 AM PARK AIDE): Continued synovitis, fatigue and stiffness on current [...] molecule drug used to treat adults with xkbexohr-wg-pjpozm, active rheumatoid arthritis who have not responded [...] by Monica Padilla and reviewed by the [employer] Committee on Communications and Marketing. This information is provided for general education only. Individuals should consult a qualified health care provider for professional medical advice, diagnosis and treatment of a medical or health condition. 2014 [employer] See more at: https://www.rheumatology.org/I-Am-A/Patient-Caregiver/Treatments/Tofacitinib-Cit [...] molecule drug used to treat adults with kpjzhqpk-tg-wcasly, active rheumatoid arthritis who have not responded [...] by Monica Padilla and reviewed by the [employer] Committee on Communications and Marketing. This information is provided for general education only. Individuals should consult a qualified health care provider for professional medical advice, diagnosis and treatment of a medical or health condition. 2014 [employer] See more at: https://www.rheumatology.org/I-Am-A/Patient-Caregiver/Treatments/Tofacitinib-Cit rate- Xeljanz#sthash.yJxWcSqz.dpuf ABATACEPT (ORENCIA) PATIENT INFORMATION: Abatacept (Orencia) is often prescribed after failure of a disease-modifying anti-rheumatic agent (DMARD), like methotrexate but it can be used as first-line therapy. Abatacept is used to reduce inflammatory symptoms such as swelling, pain, and stiffness. In the fpc, it is expected to stop joint deformities, [...] of possible cancer risk. Monitoring by your diversity manager is necessary while taking this medication and [...] while receiving abatacept and should consult their diversity manager before receiving a live vaccine afterwards. Risks in women are still being studied. Because biologics tend to be expensive, its availability may depend on your insurance formulary. Updated November 2016 by Fatoumata Severino MD and reviewed by the [employer] Committee on Communications and Marketing.This information is provided for general education only. Individuals should consult a qualified health care provider for professional medical advice, diagnosis and treatment of a medical or health condition. 2017 [employer] - See more at: https://www.rheumatology.org/I-Am-A/Patient-Caregiver/Treatments/Abatacept-Orenc ia#st hash.sOTxdU1A.dpuf Assessment & Plan (12/03/2017 9:16 AM CDT): RA clinically stable on current med regimen. No med side effects reported. Continue same. Assessment & Plan (08/05/2017 9:24 AM PARK AIDE): Clinically stable. Continue certolizumab. Recent flare back, [...] on file Legal Sex Male 9:57 AM PARK AIDE Gender Identity Not on file Sexual Orientation [...] on file Medical Devices Implanted Type Area Stone Grader Device Identifier Shelf Expiration Date Model / [...] BLOOD ORDERABLES Final Result Performing Organization Address City/[facility]/ZIP Co de Phone Number [facility] [address] [place] [address] * Erythrocyte sedimentation rate (02/01/2025 8:51 AM CDT) Erythrocyte sedimentation rate 16 1 - 20 mm/hr Blood 02/01/2025 8:51 AM CDT 02/01/2025 9:28 AM CDT Jessica Tyson MD LAB BLOOD ORDERABLES Final Result Performing Organization Address City/[facility]/ZIP Co de Phone Number [facility] [address] Department [place] [address] * (ABNORMAL) CBC without differential (02/01/2025 8:51 AM CDT) WBC 9.88 3.80 - 9.90 K/cumm Hgb 15.0 13.0 - 17.5 g/dL [facility] Hct 43.3 38.9 - 50.3 % [facility] Plt 187 150 - 400 K/cumm [facility] MPV 11.2 9.1 - 12.3 fL [facility] RBC 4.44 4.30 - 5.80 M/cumm [facility] MCV 97.5(H) 81.3 - 96.4 fL [facility] MCH 33.8(H) 27.1 - 33.3 pg [facility] MCHC 34.6 32.3 - 35.7 g/dL [facility] RDW CV 12.7 11.1 - 14.9 % [facility] RDW SD 45.6 35.7 - 48.1 fL [facility] NRBC abs 0.00 0.00 - 0.01 K/cumm [facility] Blood 02/01/2025 8:51 AM CDT 02/01/2025 9:28 AM CDT us Jessica Tyson MD LAB BLOOD ORDERABLES Final Result [facility] [address] Department [place] [address] * Comprehensive metabolic panel (02/01/2025 8:51 AM CDT) Sodium 141 135 - 145 mmol/L Potassium, pl 4.5 3.3 - 4.9 mmol/L [facility] Chloride 107 97 - 110 mmol/L [facility] CO2 23 22 - 32 mmol/L [facility] Anion gap 11 2 - 15 mmol/L [facility] BUN 14 6 - 25 mg/dL [facility] Creatinine 0.85 0.80 - 1.30 mg/dL [facility] Glucose 93 70 - 199 mg/dL [facility] Comment: Interpretive Data Fasting glucose >/= [...] 2022. Calcium 9.4 8.5 - 10.3 mg/dL [facility] Bilirubin, total 0.2 0.1 - 1.2 mg/dL [facility] Protein, pl 6.7 6.5 - 8.5 g/dL [facility] Albumin 3.8 3.5 - 5.0 g/dL [facility] Alk phos 100 40 - 130 Units/L [facility] ALT 32 7 - 55 Units/L [facility] AST 23 10 - 50 Units/L [facility] Blood 02/01/2025 8:51 AM CDT 02/01/2025 9:28 AM CDT us Jessica Tyson MD LAB BLOOD ORDERABLES Final Result [facility] [address] Department [place] [address] from Last 3 Months Insurance [employer] [facility] [employer] Advance Directives For more information, please contact: [phone] * Full Code (Latest Code Status on File) Date Activated Date Inactivated Comments 10/14/2019 9:23 AM 10/14/2019 2:31 PM * Full Code Date Activated Date Inactivated Comments 09/14/2019 7:52 AM 09/14/2019 1:51 PM Care Teams Fleet Service Manager Relationship Specialty Start Date End Date Babak Levin MD PCP - General Family Practice 09/14/20 Santa Woodward MD Referring Physician Surgery 10/14/19
--- OUTSIDE RECORDS SUMMARY | 2025-02-06 15:34 | XMS_ITS | Continuity of Care Document ---
Author Organization [facility] Address [address] [place] [address] Phone Care Team Providers Care General Passenger Agent Name Role Phone Bindu Forrester Unavailable Unavailabl e Allergies, Adverse Reactions, Alerts Substance Reaction Status Criticality No Known Allergies Active No Inform ation Medications Medication Instructions Dosage Effective Dates (start - stop) Status Comments atorvastatin 40 mg tablet - Active tamsulosin 0.4 mg capsule take 1 capsule by oral route every day 1/2 hour following the same meal each day 0.4 MG - Active Breo Ellipta 200 mcg-25 mcg/dose powder for inhalation - Active trazodone 100 mg tablet - Active alprazolam 1 mg tablet - Active Procedures Procedure Date Kenalog 10mg/mL Inject tndn sheath/lgmnt/gangl cyst Kenalog 10mg/mL Inject tndn sheath/lgmnt/gangl cyst Office/outpatient visit,new, mod 2021 Office/outpatient visit,new, mod 2018 Asp/inject major joint or bursa w/o US g uidance Kenalog Triamcinolone acetonide inj Advance Directives Directive Yes / No Effective Date File Name No Information Encounters Encounter Description Practice Location Reason(s) For Visit Diagnoses Date Provider Providers Copied on Encounter Office/outpat ient visit,new, mod [facility], [address], [place], [place], [id number], [place] tel:[phone] [facility] Professional [facility] Bilateral hands (chief complaint) Trigger finger, left middle fingerTrigger finger, right ring finger 2 Rashad Ruano. [address], [place], [place], [id number] , . tel: [phone] Office/outpat ient visit,new, mod [facility], [address], [place], [id number], [phone] [facility] Left Knee (chief complaint) Pain in left knee 9 Tabatha tomlinson. [address] [facility] [facility] [address], [place], [place], [id number] , . tel: [phone] Family History Family Member Type Diagnosis Age At Onset Father Problem (finding) Cancer, unknown Mother Problem (finding) Hypertension Father Problem (finding) Hypertension Father Problem (finding) Diabetes Payers Payer name Insurance type Covered alliance party ID Authorfedericoa igor(s) [facility] [id number] Social History Type Description Quantity Date Captured Comments Alcohol Use Details Unknown Caffeine Use Details Unknown Tobacco Use Status Smoking Status No Information Sex Male Vital Signs Date / Time: Height Weight BMI Pulse Rate Blood Pressure Temperature Respiratory Rate Body Surface Area Head Circumference Head Circ. Percentile Wt./Tenzin. Percentile BMI percentile Pulse Ox Inhaled Ox 9:43 AM 70.00 in 81.647 kg (180.00 lbs) 25.8 3 kg/m ary (2) Chief Complaint And Reason For Visit From encounter dated '07/28/2022 09:30'. Bilateral hands (chief complaint). Description: Joaquín is seen in the office today as a new patient.He presents with left middle finger and right ring finger pain and locking. The left middle finger symptoms have been present for 9 months. The right ring finger symptoms have been present for 2-3 months. He describes intermittent locking. He describes swelling and stiffness of both hands. He denies numbness and tingling. He does not recall a specific injury. He has a history of rheumatoid arthritis. He presents to the office today for evaluation and treatment of his left middle finger and right ring finger pain, stiffness, and locking. Reason For Referral Reason For Referral No Information History Of Present Illness Encounter Date Complaint History Of Prese nt Illness Bilateral hands Joaquín is seen in the office today as a new patient. He presents with left middle finger and right ring finger pain and locking. The left middle finger symptoms have been present for 9 months. The right ring finger symptoms have been present for 2-3 months. He describes intermittent locking. He describes swelling and stiffness of both hands. He denies numbness and tingling. He does not recall a specific injury. He has a history of rheumatoid arthritis. He presents to the office today for evaluation and treatment of his left middle finger and right ring finger pain, stiffness, and locking. Left Knee Latasha is a pleas ant 58-year-old gentleman who presents today for discussion of his left knee. He is followed by Dr. Peterson. He is treated for rheumatoid arthritis. He is 5 foot 10 and weighs 195 pounds. He is very active. He is undergone previous MCL reconstruction of the left knee by Dr. Bonilla. His pain as a 5/10. It is constant, sharp and throbbing. He endorses catching decreased motion limping locking, popping and tenderness. He states his knee seems to catch predominately behind the knee. He endorses pain with bending climbing stairs descending stairs and walking. Pain is better with ice and vfsm-jgy-fgoizsi medication. He has not seen any other physicians for this problem. He has undergone hip surgery lumbar spine surgery and left knee surgery. He is a daily smoker smoking 1-2 packs per day with social alcohol consumption.He has radiographs obtained and cortical desktop AP lateral and merchant views of the knee demonstrate previous interference screw fixation in the medial tibia and medial femur. There is moderate osteoarthritis is tricompartmental in nature. No acute fracture or osseous processes present. Functional Status Date Functional Assessmen t No Information Instructions Date Instruction Additional Infor luis miguel We have reviewed the radiographs and correlated them to history and physical exam findings. The patient is diagnosed with knee osteoarthritis. We discussed the patho-physiology and progression of the disease process. the patient wishes to proceed in a step casillas non-surgical treatment program. We will start with activity modification, oral anti -inflammatories (risk of kidney, liver and GI dysfucntion), security operations specialist brace, weight loss, physical therapy, and intra-articular injections (cortisone, biological, and visco-supplements). The patient understands the availiable treatment options. we will proceed in a stepwise conservative approach. Follow up in 3 months, for repeat injection, unless otherwise indicated for sooner follow up. After verbal consent was obtained. The patient's knee was prepped and draped using Betadine and alcohol. A 22-gauge syringe was used to introduce 40 mg of Kenalog and 3 cc of lidocaine through anterior lateral portal. Patient tolerated this procedure well. A sterile dressing was applied. There were no complications. Related to Pain in left knee Assessments Type Assessment Date assessment Trigger finger, left middle fing er assessment Trigger finger, right ring finge r impression We discussed treatme nt options including A1 jb trigger releases of the left middle finger and right ring finger and cortisone injections. Joaquín would like to proceed with cortisone injections. We discussed the risks which include, but are not limited to, temporary weakening of the tendon, whitening of the skin at the injection site, temporary increase in blood sugar, and risk of increased pain over the next 48 hours. I injected the flexor tendon sheaths of the left middle finger and right ring finger with lidocaine and Kenalog. He may advance his activities as tolerated. He will return to the office as needed. He may call with any questions or concerns. Patient Care Teams Name Effective Dates (start - stop) Status Members No Information
--- OUTSIDE RECORDS SUMMARY | 2025-02-06 15:34 | XMS_ITS | Clinical Summary ---
Author Organization [facility] Address [address] [place] [address] Care Team Providers Care Belt Fixer Name Role Phone Unavailable Primary Care Provider [...] 2, 06/02/2019, 06/26/2018, Additional history exists Insurance [facility] INDIVIDUAL EXCHANGE [id number]
--- OUTSIDE RECORDS SUMMARY | 2025-02-06 15:34 | XMS_ITS | Clinical Summary ---
Author Organization [facility] [address] [employer] Address [address] [place] [address] Care Team Providers Care Compensation Programs Manager Name Role Phone Babak Levin MD Primary Care Provider Source Comments [facility],non-owned Affiliates and Associated Physician Practices is amultiple site organization consisting of ambulatory clinics and hospital sitesin [place], [place], [place] and [place]. This disclosure is being madepursuant to the Care Everywhere program and may not contain all information available regarding this patient. 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 Gender Identity Not on file Sexual Orientation [...] Description 04/20/2025 9:20 AM CDT Office Visit [facility] - Pulmonology [address] [place], [place] [id number] Odnina Redman, [employer] OPERATOR-CABIN EQUIPMENT SUPERVISOR [address] [place] [address] Health Maintenance Due Date Last Done Comments [...] Insurance [employer] Care Teams Compensation Programs Manager Relationship Specialty Start Date End Date Babak Levin MD [facility] [place] [address] [place] [phone] PCP - General Family Medicine 04/14/23
--- OUTSIDE RECORDS SUMMARY | 2025-02-06 15:34 | XMS_ITS | Continuity of Care Document ---
Author Organization [facility] Address [id number] [place] [address] utive [facility] [address] [place] [address] Phone Care Team Providers Care Websphere Consultant Name Role Phone Antonio Cerrato Unavailable Unavailable Procedures Procedure Date Office/outpatient Visit, [facility] Ref[facility] Advance Directives Directive Yes / No Effective Date File Name No Information Encounters Encounter Description Practice Location Reason(s) For Visit Diagnoses Date Provider Providers Copied on Encounter Office/outpat ient Visit, [facility], [address], [place], [place], [address], [place] tel:[phone] [facility] No Information 0-200 9 Havendiana Alvarez. [address] [facility] [address], [place], [address], [place]. tel:[phone] Family History Family Member Type Diagnosis Age At Onset No Information Payers Payer name Insurance type Covered republican ID Authoriza tion(s) No Information Social History Type Description Quantity Date Captured Comments Sex Male Smoking Status No Information Chief Complaint And Reason For Visit No Information Reason For Referral Reason For Referral No Information History Of Present Illness Encounter Date Complaint History Of Prese nt Illness No Information Functional Status Date Functional Assessmen t No Information Instructions Date Instruction Additional Infor mation No Information Assessments Type Assessment Date No Information Patient Care Teams Name Effective Dates (start - stop) Status Members No Information
--- OUTSIDE RECORDS SUMMARY | 2025-02-06 15:34 | XMS_ITS | Clinical Summary ---
Author Organization [facility] Address [address] [place] [address] Care Team Providers Care Department Manager Name Role Phone Santa Woodward MD Unavailable [phone] Babak Levin MD Primary Care Provider Allergies [...] (02/16/2020): Added automatically from request for surgery [id number] Advice given about 2019 novel coronavirus by tel sreedhar 01/24/2020 Assessment & Plan (01/24/2020 9:58 AM CDT): The full impact of autoimmune diseases and immunomodulatory medications on susceptibility and complications of coronavirus disease is not yet studied. Because we have director of casino with this new virus we do not [...] that you continue to adhere to the wecn-rl-qlqa orders for the time being, especially in view of your potentially immunocompromised status. Feel free to reach out to us if you have additional questions after you review this information. You may review the current [employer] [employer] Covid-19 clinical guidance for Patients with Rheumatic Diseases if you copy and paste the link below into your web browser: [email or web address] [email or web address] Of course, Actemra should be placed on hold in the event you were to become ill. Peptic ulcer without hemorrhage or perforation 0 10/17/2019 Assessment & Plan (10/17/2019 10:02 AM FIELD EDUCATION COORDINATOR): Reviewed EGD with duodenal and gastric ulcer. Completed 30 day Prilosec as ordered by Dr. Hernandez. Follow up endoscopy 11/23/2019. May use Pepcid AC in the interim if needed for heartburn/dyspepsia. History of pneumonia 10/17/2019 Overview (10/17/2019): pneumonia Perianal abscess 10/06/2019 Overview (10/06/2019): Added automatically from request for surgery [id number] Assessment & Plan (01/24/2020 10:16 AM CDT): Management per Dr. Woodward. If continues to recur may need to discontinue Actemra; hopefully it will not come to that. Assessment & Plan (10/17/2019 10:05 AM FIELD EDUCATION COORDINATOR): Incision and drainage 10/14/2019 (Dr. Woodward). Acute [...] M.D. Result History US Abdomen Complete (Order #[id number]) on 04/25/2019 - Order Result History Report Assessment & Plan (01/24/2020 9:55 AM CDT): Currently symptom free. Update lab as per orders. Assessment & Plan (10/17/2019 9:49 AM FIELD EDUCATION COORDINATOR): EGD and EUS reviewed. Impression: EGD impression: [...] BID for 1 month (prescription sent to [facility]). - Return to Dr Hunter's office [...] Plan (03/29/2019 9:52 AM CDT): Evaluated in [facility] ER 2018 when patient presented with chest [...] 12/2018: XR Knee Left AP Lat [place] Status: Final result Study Result EXAM: XR [...] History XR Knee Left AP Lat [place] (Order #[id number]) on 12/07/2018 - Order Result History Report [...] advantage. Assessment & Plan (10/17/2019 10:00 AM FIELD EDUCATION COORDINATOR): Smoke cessation efforts reviewed. Reinforce importance tobacco cessation! Please check out the CDC tobacco cessation website: https://www.cdc.gov/tobacco/ We can offer Chantix to help reduce craving and withdrawal if you wish to try. You may read read about Chantix online. www.chantix.Dotted Block Assessment & Plan (08/05/2017 9:22 AM FIELD EDUCATION COORDINATOR): Pulmonary issues managed by Dr. Jorge santos. [...] are complete. Avoid live-vaccines unless reviewed with supervisor advice first. Assessment & Plan (03/28/2022 8:21 AM CDT): Long-term use of high-risk medication requiring regular monitoring. Labs ordered, no s/s of med tox or infection. Encouraged to work with PCP to make sure all recommended cancer screens and vaccinations are complete. Avoid live-vaccines unless reviewed with supervisor advice first. Screening Ophthalmological Evaluation Request Medication: Hydroxychloroquine [...] written. Assessment & Plan (10/17/2019 9:48 AM FIELD EDUCATION COORDINATOR): Patient on medications requiring periodic lab monitoring [...] written. Assessment & Plan (09/30/2018 9:41 AM FIELD EDUCATION COORDINATOR): Patient on immunosuppressive medications requiring periodic lab [...] written. Assessment & Plan (08/05/2017 9:23 AM FIELD EDUCATION COORDINATOR): Patient on immunosuppressive medications requiring periodic lab monitoring for drug safety. Update lab as per orders written. Assessment & Plan (04/15/2017 9:25 AM CDT): Patient on immunosuppressive medications requiring periodic lab monitoring for drug safety. Update lab as per orders written. Overweight with body mass index (BMI) 25.0-29.9 04/15/2017 Assessment & Plan (10/17/2019 10:01 AM FIELD EDUCATION COORDINATOR): An optimal BMI (body mass index) is [...] management. Assessment & Plan (09/30/2018 9:41 AM FIELD EDUCATION COORDINATOR): An optimal BMI (body mass index) is [...] management. Assessment & Plan (08/05/2017 9:22 AM FIELD EDUCATION COORDINATOR): Stable, near normal. An optimal BMI is [...] week. Assessment & Plan (10/17/2019 9:46 AM FIELD EDUCATION COORDINATOR): Clinically stable. He has missed the last [...] flare L knee. Patient was seen in [facility] for chest pain with ?pancreatitis (elevated lipase) [...] as swelling, pain, and stiffness. 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 Monitoring by your supervisor advice is necessary while taking this medication and [...] while receiving abatacept and should consult their supervisor advice before receiving a live vaccine afterwards. Risks in women are still being studied. Because biologics tend to be expensive, its availability may depend on your insurance formulary. Updated November 2016 by Fatoumata Severino MD and reviewed by the [employer] [employer] Committee on Communications and Marketing.This information is provided for general education only. Individuals should consult a qualified health care provider for professional medical advice, diagnosis and treatment of a medical or health condition. 2017 [place] [employer] - See more at: [email or web address]-Orenc ia#st [email or web address].dpuf Assessment & Plan (12/07/2018 9:44 PM CDT): [...] same. Assessment & Plan (09/30/2018 9:40 AM FIELD EDUCATION COORDINATOR): Continued synovitis, fatigue and stiffness on current [...] molecule drug used to treat adults with xmbuqmax-kj-ublunw, active rheumatoid arthritis who have not responded [...] by Monica Padilla and reviewed by the [place] [employer] Committee on Communications and Marketing. This information is provided for general education only. Individuals should consult a qualified health care provider for professional medical advice, diagnosis and treatment of a medical or health condition. 2014 [employer] [employer] See more at: https://[email or web address]-Caregiver/Treatments/Tofacitinib-Cit [...] molecule drug used to treat adults with nhutcujy-nc-zrlewl, active rheumatoid arthritis who have not responded [...] by Monica Padilla and reviewed by the [place] [employer] Committee on Communications and Marketing. This information is provided for general education only. Individuals should consult a qualified health care provider for professional medical advice, diagnosis and treatment of a medical or health condition. 2014 [place] [employer] See more at: https://[email or web address]-Caregiver/Treatments/Tofacitinib-Cit rate- Xeljanz#sthash.[email or web address].dpuf ABATACEPT (ORENCIA) PATIENT INFORMATION: Abatacept (Orencia) is often prescribed after failure of a disease-modifying anti-rheumatic agent (DMARD), like methotrexate but it can be used as first-line therapy. Abatacept is used to reduce inflammatory symptoms such as swelling, pain, and stiffness. 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 Monitoring by your supervisor advice is necessary while taking this medication and [...] while receiving abatacept and should consult their supervisor advice before receiving a live vaccine afterwards. Risks in women are still being studied. Because biologics tend to be expensive, its availability may depend on your insurance formulary. Updated November 2016 by Fatoumata Severino MD and reviewed by the [place] [employer] Committee on Communications and Marketing.This information is provided for general education only. Individuals should consult a qualified health care provider for professional medical advice, diagnosis and treatment of a medical or health condition. 2017 [place] [employer] - See more at: [email or web address]/Treatments/Abatacept-Orenc ia#st hash.[email or web address].dpuf Assessment & Plan (12/03/2017 9:16 AM CDT): RA clinically stable on current med regimen. No med side effects reported. Continue same. Assessment & Plan (08/05/2017 9:24 AM FIELD EDUCATION COORDINATOR): Clinically stable. Continue certolizumab. Recent flare back, [...] Lab [facility] Outpatient Lab [address] [place] [id number] Encounter for long-term (current) use of high-risk medication; Rheumatoid arthritis involving multiple sites with positive rheumatoid factor (HCC) 02/01/2025 8:00 AM CDT Office Visit [facility] at [facility] [address] [place] [address] Jessica Tyson MD Rheumatoid arthritis [...] on file Legal Sex Male 9:57 AM FIELD EDUCATION COORDINATOR Gender Identity Not on file Sexual Orientation [...] history exists Medical Devices Implanted Type Area Class C Truck Driver Device Identifier Shelf Expiration Date Model / [...] Tyson MD LAB BLOOD ORDERABLES Final Result [facility] [address] [place] [address] * Erythrocyte sedimentation rate (02/01/2025 8:51 AM CDT) Erythrocyte sedimentation rate 16 1 - 20 mm/hr Blood 02/01/2025 8:51 AM CDT 02/01/2025 9:28 AM CDT Jessica Tyson MD LAB BLOOD ORDERABLES Final Result Performing Organization Address City/[facility]/ZIP Co de Phone Number [facility] [address] [place] [address] * (ABNORMAL) CBC without differential (02/01/2025 8:51 AM CDT) WBC 9.88 3.80 - 9.90 K/cumm Hgb 15.0 13.0 - 17.5 g/dL [facility] Hct 43.3 38.9 - 50.3 % [facility] Plt 187 150 - 400 K/cumm [facility] MPV 11.2 9.1 - 12.3 fL [facility] RBC 4.44 4.30 - 5.80 M/cumm [facility] MCV 97.5(H) 81.3 - 96.4 fL [facility] MCH 33.8(H) 27.1 - 33.3 pg [facility] MCHC 34.6 32.3 - 35.7 g/dL [facility] RDW CV 12.7 11.1 - 14.9 % [facility] RDW SD 45.6 35.7 - 48.1 fL [facility] NRBC abs 0.00 0.00 - 0.01 K/cumm [facility] Blood 02/01/2025 8:51 AM CDT 02/01/2025 9:28 AM CDT us Jessica Tyson MD LAB BLOOD ORDERABLES Final Result [facility] [address] Department [place] [address] * Comprehensive metabolic panel (02/01/2025 8:51 AM CDT) Sodium 141 135 - 145 mmol/L Potassium, pl 4.5 3.3 - 4.9 mmol/L [facility] Chloride 107 97 - 110 mmol/L [facility] CO2 23 22 - 32 mmol/L [facility] Anion gap 11 2 - 15 mmol/L [facility] BUN 14 6 - 25 mg/dL [facility] Creatinine 0.85 0.80 - 1.30 mg/dL [facility] Glucose 93 70 - 199 mg/dL [facility] Comment: Interpretive Data Fasting glucose [...] 2022. Calcium 9.4 8.5 - 10.3 mg/dL [facility] Bilirubin, total 0.2 0.1 - 1.2 mg/dL [facility] Protein, pl 6.7 6.5 - 8.5 g/dL [facility] Albumin 3.8 3.5 - 5.0 g/dL [facility] Alk phos 100 40 - 130 Units/L [facility] ALT 32 7 - 55 Units/L [facility] AST 23 10 - 50 Units/L [facility] Blood 02/01/2025 8:51 AM CDT 02/01/2025 9:28 AM CDT us Jessica Tyson MD LAB BLOOD ORDERABLES Final Result [facility] [address] [place] [address] from Last 3 Months Insurance [facility] [employer] Advance Directives For more information, please contact: [phone] * Full Code (Latest Code Status on File) Date Activated Date Inactivated Comments 10/14/2019 9:23 AM 10/14/2019 2:31 PM * Full Code Date Activated Date Inactivated Comments 09/14/2019 7:52 AM 09/14/2019 1:51 PM Care Teams Department Manager Relationship Specialty Start Date End Date Babak Levin MD PCP - General Family Practice 09/14/20 Santa Woodward MD Referring Physician Surgery 10/14/19
[2025-02-06 16:04] VITALS: BP 131/96; PULSE 71; RESP 16; O2SAT 98
[2025-02-06] MEDS: SODIUM CHLORIDE 0.9% IV 1,000 ML 999 ML IV CONT (16:04)
--- NOTE | 2025-02-06 16:41 | ED_ITS ---
HPI - General Adult General Chief complaint: Weakness Stated complaint: N/V, abd pain, dehydrated, heart hurts Time Seen by Provider: 02/06/25 15:22 History of Present Illness HPI narrative: Patient is a 64-year-old male who presents ER with concerns for dehydration. Reports he was eating a frozen pizza and put some of his personal Keppra knees on the pizza. He then developed food poisoning and had diarrhea for 24 hours. He is immunosuppressed on Enbrel for his rheumatoid arthritis. No blood in his stool. He stop vomiting. No LOC but he has been having dizziness when he goes from sitting to standing. Related Data Home Medications ?Medication ?Instructions ?Recorded ?Confirmed ?Last Taken ?Type famotidine 20 mg tablet (Pepcid AC 20 mg PO DAILY PRN 02/13/21 09/26/24 Unknown History Maximum Strength) hydroxychloroquine 200 mg tablet 200 mg PO BID 02/13/21 09/26/24 Unknown History budesonide 160 mcg-glycopyr 9 2 inh inhalation BID 09/26/24 09/26/24 Unknown History mcg-formot 4.8 mcg/actuation HFA inhaler (Breztri videof.mephere) etanercept 50 mg/mL (1 mL) 50 mg subcut WEEKLY 09/26/24 09/26/24 Unknown History subcutaneous pen injector (Enbrel SureClick) trazodone 50 mg tablet 50 mg PO QHS 09/26/24 09/26/24 Unknown History Allergies Allergy/AdvReac Type Severity Reaction Status Date / Time No Known Allergies Allergy Verified 02/06/25 13:53 Review of Systems 2 Review of Systems: All systems reviewed & are unremarkable except as noted in HPI and below Constitutional: Constitutional: Reports no additional constitutional complaints Cardiovascular: Cardiovascular: Reports no additional cardiovascular complaints Respiratory: Respiratory: Reports no additional respiratory complaints Gastrointestinal: Gastrointestinal: Reports no additional gastrointestinal complaints Integumentary/Breasts: Skin/Breast: Reports system reviewed and no additional complaints, except as docu PMFSH Past Medical History Medical History History of colon polyps Chronic obstructive pulmonary disease History of pancreatitis 2017 Recurrent genital herpes GERD (gastroesophageal reflux disease) History of torsion of testis (~1987) playing baseball; repaired Abnormal colonoscopy (~11/2019) Polyp removed - repeat in 5 yrs Peptic ulcer (~10/2019) Had EGD Elevated pancreatic enzyme Hyperlipidemia Hx of herpes genitalis History of asbestos exposure Anxiety BPH (benign prostatic hyperplasia) Abscess of anal or rectal region (~10/2019) Rheumatoid arthritis (~2004) [place] Bap: Surgical History Surgical History Hx of drainage of abscess I&D of rectal abscess - 10/2018, 03/2019, 10/2019 Status post excision of vocal cord nodule (~2009) Hx of umbilical hernia repair (~1986) H/O bilateral inguinal hernia repair (~1985) re-do right; 1988 Status post arthroscopic surgery of left knee (~2001) MCl reconstruction H/O lumbar discectomy (~1990) History of left hip replacement (~09/28/13) History of hemorrhoidectomy (~10/2019) Family History Family History Father Family history of diabetes mellitus in first degree relative Other Diabetes mellitus Hypertension Social History Social History Social History: started smoking 20 y/o up to 1 ppd; quit up to 2 months: 09/2019-11/2019 Smoking packs per day: 1 Smoking cigarettes per day: 20.0 Years smoked: 40 Smoking pack-years: 40.00 Smoking status: Current every day smoker Tobacco type: cigarettes Second hand tobacco smoke exposure: Yes Alcohol intake: never Substance use: never Substance use type: does not use Do You Feel Safe in your Home?: Yes Lack of Transportation: No Lack of Food: Never True Current Housing: I Have Housing Concerned About Future Housing: No Difficulty Paying Gas/Electric Bills: No Difficulty Paying for Meds: No Currently Unemployed: No Education: Bachelor's Degree Difficulty w/ Childcare or Family Care: No Living arrangements: with family Occupation/Education: occupation 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 HEAD: Normocephalic, atraumatic. ENT: Mucous membranes moist. CHEST: Clear to auscultation. No respiratory distress. HEART: Regular rate and rhythm. Normal peripheral pulses. ABDOMEN: Soft, nontender, nondistended. EXTREMITIES: Normal range of motion. No edema. SKIN: Warm, dry, no rash. NEURO: Alert and oriented x3. PSYCH: Normal mood and affect. Course Course Emergency Course: Patient resting comfortably. Informed of results. Hydrated. Discharge. Vital Signs Vital signs: Vital Signs Temperature 98.8 F 02/06/25 14:18 Pulse Rate 82 02/06/25 14:18 Respiratory Rate 17 02/06/25 14:18 Blood Pressure 130/91 H 02/06/25 14:18 Pulse Oximetry 96 02/06/25 14:18 Oxygen Delivery Room Air 02/06/25 14:18 Temperature 98.8 F 02/06/25 14:18 Pulse Rate 73 02/06/25 16:42 Respiratory Rate 13 02/06/25 16:42 Blood Pressure 133/80 02/06/25 16:42 Pulse Oximetry 100 02/06/25 16:42 Oxygen Delivery Room Air 02/06/25 14:18 Medical Decision Making Vital Signs Vital Signs: Vital Signs Temperature 98.8 F 02/06/25 14:18 Pulse Rate 82 02/06/25 14:18 Respiratory Rate 17 02/06/25 14:18 Blood Pressure 130/91 H 02/06/25 14:18 Pulse Oximetry 96 02/06/25 14:18 Oxygen Delivery Room Air 02/06/25 14:18 Temperature 98.8 F 02/06/25 14:18 Pulse Rate 73 02/06/25 16:42 Respiratory Rate 13 02/06/25 16:42 Blood Pressure 133/80 02/06/25 16:42 Pulse Oximetry 100 02/06/25 16:42 Oxygen Delivery Room Air 02/06/25 14:18 Lab Data 02/06/25 14:15 02/06/25 14:15 Labs: Lab Results 02/06/25 02/06/25 Range/Units 14:15 16:43 WBC 10.4 H (4.5-10.0) K/mm3 RBC 5.19 (4.6-6.20) M/mm3 Hgb 17.3 (14.0-18.0) g/dL Hct 50.6 (42.0-52.0) % MCV 97.5 (80-100) fl MCH 33.3 (26-34) pg MCHC 34.2 (32-36) g/dl RDW 12.7 (11.5-14.5) % Plt Count 213 (150-375) k/mm3 MPV 10.6 H (7.4-10.4) fl Immature Gran % (Auto) 0.5 (0-0.5) % Neut % (Auto) 66.8 (45.5-73.1) % Lymph % (Auto) 17.5 L (18.3-44.2) % [place] % (Auto) 12.1 H (2.6-8.5) % Eos % (Auto) 2.8 (0-4.4) % Baso % (Auto) 0.3 (0.2-1.2) % Lymph # (Auto) 1.83 (0.9-3.2) K/mm3 [place] # (Auto) 1.3 H (0.1-0.6) K/mm3 Eos # (Auto) 0.3 (0-0.3) K/mm3 Baso # (Auto) 0.0 (0.0-0.1) K/mm3 Abs Immat Gran (auto) 0.05 H (0.00-0.031) K/mm3 Absolute Neuts (auto) 7.0 H (1.3-6.7) K/mm3 Absolute Nucleated RBC 0.000 (0.0-0.012) K/mm3 Nucleated RBC % 0.0 (0.0-0.2) % Sodium 138 (137-145) mmol/L Potassium 4.2 (3.4-5.0) mmol/L Chloride 106 (98-107) mmol/L Carbon Dioxide 19 L (22-30) mmol/L Anion Gap 13 H (4-12) mmol/L BUN 31 H (9-20) mg/dL Creatinine 1.23 (0.7-1.3) mg/dL Estim Creat Clear Calc 57 ml/min Estimated GFR 60 (59 - ) Glucose 102 (65-110) mg/dL Calcium 10.0 (8.4-10.2) mg/dL Total Bilirubin 0.7 (0.2-1.3) mg/dL AST 32 (17-59) U/L ALT 28 (6-50) U/L Alkaline Phosphatase 85 (38-126) U/L Total Protein 8.0 (6.3-8.2) g/dL Albumin 4.6 (3.5-5.1) g/dL Urine Color Yellow (Yellow) Urine Appearance Cloudy H (Clear) Urine pH 5.0 (5.0-9.0) Ur Specific [place] 1.028 (1.001-1.035) Urine Protein Trace (Negative) mg/dL Urine Glucose (UA) Negative (Negative) mg/dL Urine Ketones Trace H (Negative) mg/dL Ur Blood (Man) Negative (Negative) Urine Nitrate Negative (Negative) Urine Bilirubin Negative (Negative) Urine Urobilinogen 1.0 (<2.0) mg/dL Leukocyte Esterase Rfl Negative (Negative) JOHN/UL Urine RBC 3-5 H (0-2) /hpf Urine WBC 0-5 (0-3) /hpf Ur Squamous Epith Cells None seen (Few) /hpf Calcium Oxalate Crystal Present (None) /hpf Urine Bacteria None seen /hpf Urine Casts 0-2 Discharge Plan Discharge Clinical Impression: Dehydration, Food poisoning Patient Disposition: Home Condition: Stable Instructions: Dehydration (ED) Additional Instructions: Return the ER if you have fever 100.4? F, he cannot keep down food water, you lose consciousness, have additional concerns. Patient Language: Mohawk Prescriptions: No Action hydroxychloroquine 200 mg tablet 200 mg PO BID famotidine [Pepcid AC Maximum Strength] 20 mg tablet 20 mg PO DAILY PRN tamsulosin 0.4 mg capsule 0.4 mg PO DAILY Qty: 90 2RF acyclovir 400 mg tablet 400 mg PO TID PRN (Reason: outbreak) Qty: 30 1RF trazodone 50 mg tablet 50 mg PO QHS Breztri Aerosphere 160-9-4.8 mcg/actuation HFA aerosol inhaler 2 inh inhalation BID Enbrel SureClick 50 mg/mL (1 mL) pen injector 50 mg subcut WEEKLY atorvastatin 40 mg tablet 40 mg PO QHS Qty: 90 2RF sildenafil 100 mg tablet See Rx Instructions .ROUTE .COMPLEX Qty: 30 0RF Dose Instruction: TAKE 1 TABLET BY MOUTH DAILY FOR SEXUAL ACTIVITY NEEDED Rx Instructions: TAKE 1 TABLET BY MOUTH DAILY FOR SEXUAL ACTIVITY NEEDED alprazolam 0.25 mg tablet 0.25 mg PO BID PRN (Reason: anxiety) Qty: 90 1RF Follow-up/Referrals: Henrik Levin MD [Primary Care Provider] - 1 Week
[2025-02-06 16:42] VITALS: BP 133/80; PULSE 73; RESP 13; O2SAT 100
[2025-02-06 17:07] LABS: Add Urine Microscopic? YES; Appearance Urine Cloudy (Clear); Bacteria Urine None Seen /hpf; Bilirubin Urine Negative (Negative); Blood Urine Negative (Negative); Calcium Oxalate Crystals Urine Present /hpf; Color Urine Yellow (Yellow); Glucose Urine UA Negative (Negative); Ketones Urine Trace mg/dL (Negative); Leukocyte Esterase Ur Negative LEU/UL (Negative); Nitrate Urine Negative (Negative); Non Pathogenic Casts 0-2; Protein Urine Trace mg/dL (Negative); Specific Grav Ur 1.028 (1.001-1.035); Squamous Epithelial Cell Urine None Seen /hpf (Few); WBC Urine 0-5 /hpf (0-3)
[2025-02-06 17:36] VITALS: BP 129/83; PULSE 73; RESP 16; O2SAT 98
== END 2025-02-06 17:37 | disposition home or self-care (01) ==
PROVIDERS: Emergency Provider Emergency Medicine; PCP Family Medicine
DX: E86.0 Dehydration (principal); A05.9 Bacterial foodborne intoxication, unspecified; F17.210 Nicotine dependence, cigarettes, uncomplicated; J44.9 Chronic obstructive pulmonary disease, unspecified; K21.9 Gastro-esophageal reflux disease without esophagitis; E78.5 Hyperlipidemia, unspecified; F41.9 Anxiety disorder, unspecified; N40.0 Benign prostatic hyperplasia without lower urinary tract symptoms; M06.9 Rheumatoid arthritis, unspecified
CPT/HCPCS: 36415; 71046; 80053; 81001; 85025; 93005; 96360; 99283; J7030